=== PATIENT | female | born 2005 | race Caucasian/White ===

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

== ENCOUNTER 2024-08-09 17:18 | Emergency (ER) | payer OTHER, SELFPAY ==
[2024-08-09 17:37] VITALS: BP 133/71; PULSE 100; RESP 16; TEMP 37.3; O2SAT 100
--- NOTE | 2024-08-09 23:21 | ED_ITS ---
HPI - Ear Problem General Chief complaint: Ear Stated complaint: ear pain Time Seen by Provider: 08/09/24 17:38 Source: patient, RN notes reviewed and old records reviewed Mode of arrival: ambulatory Limitations: no limitations History of Present Illness HPI Narrative: 19-year-old female to Express Care with complaint of right ear pain for 2-3 days. Patient has attempted to treat at home with warm compresses and ibuprofen with little relief. Patient reports that pain is increasing. Patient denies fever, sore throat, recent illness, pertinent medical history. Patient able to tolerate fluids by mouth. Patient resting uncomfortably in exam room. Patient in no acute distress. Related Data Allergies Allergy/AdvReac Type Severity Reaction Status Date / Time codeine Allergy Unknown Unknown Unverified 08/09/24 17:37 pistachio nut Allergy Unknown Unknown Verified 08/09/24 17:37 walnut Allergy Unknown Unknown Verified 08/09/24 17:37 Cashew Allergy Unknown Unknown Uncoded 08/09/24 17:37 Review of Systems Review of Systems: All systems reviewed & are unremarkable except as noted in HPI and below Constitutional: Constitutional: Reports no additional constitutional complaints Eyes: Eyes: Reports no additional eye complaints ENT: Reports as per HPI and Reports otalgia ( Right) Cardiovascular: Cardiovascular: Reports no additional cardiovascular complaints, Denies chest pain and Denies dyspnea Respiratory: Respiratory: Reports no additional respiratory complaints, Denies cough and Denies dyspnea Musculoskeletal: Musculoskeletal: Reports no additional musculoskeletal complaints Neurologic: Reports system reviewed and no additional complaints, except as documented Psychiatric: Psychiatric: Reports no additional psychiatric complaints [facility] Past Medical History Medical History Allergic asthma PTSD (post-traumatic stress disorder) Epilepsy Seizure Surgical History Surgical History History of tonsillectomy and adenoidectomy Social History Social History Smoking status: Never smoker Alcohol intake: never Substance use type: does not use Living arrangements: with family Gender identity (if verbalized by the patient): Female Comments At the time of my signature, I reviewed and agree with the nursing past medical, surgical, social, and family history. There is no relevant family history pertinent to the patient complaint. Exam Const: General: cooperative, comfortable, no acute distress, alert, uncomfortable and well nourished Nutritional Appearance: well nourished Orientation/consciousness: patient oriented x3 Limitations: no limitations HENMT: Head: normal to inspection Ears: external ears normal, Abnormal EAC present EAC tenderness on the right and TM abnormal bulging on the right, erythematous on the right and with loss of landmarks on the right Face/No se/Sinus: Normal external nose present, Normal nares present, normal facial exam, No erythema and No edema Face and sinus: normal facial exam, no erythema and no edema Mouth: Yes Normal oral and palatal mucosa present Eyes: General: appearance normal, both eyes and all related structures Neck: Neck: normal visual inspection, full ROM and no meningeal signs Lymphatic: no lymphadenopathy noted and no lymphedema noted Chest: Chest palpation & inspection: normal inspection of the chest Resp: Effort & Inspection: normal respiratory effort and able to speak in complete sentences Auscultation: clear to auscultation bilaterally Cardio: Jugular venous distension: no JVD Rate: regular rate Rhythm: regular rhythm Back/Spine/Pelvis: Cervical Spine: cervical ROM normal Skin: General skin exam: normal color, no rashes or lesions noted and turgor normal Neuro: General: patient oriented x3, gait normal, moves all extremities and no meningeal signs Speech: normal speech Gait exam (Neuro): Normal gait present Extrem: General: normal to inspection, full ROM and capillary refill normal Psych: Appearance: grossly normal and well kempt Course Course Emergency Course: Some parts of this dictation were generated by voice recognition software and may contain typographical and/or grammatical inaccuracies. Level of Care: Express Care Visit Vital Signs Vital signs: Vital Signs Temperature 37.3 C 08/09/24 17:37 Pulse Rate 100 08/09/24 17:37 Respiratory Rate 16 08/09/24 17:37 Blood Pressure 133/71 08/09/24 17:37 Pulse Oximetry 100 08/09/24 17:37 Oxygen Delivery Room Air 08/09/24 17:37 Temperature 37.3 C 08/09/24 17:37 Pulse Rate 100 08/09/24 17:37 Respiratory Rate 16 08/09/24 17:37 Blood Pressure 133/71 08/09/24 17:37 Pulse Oximetry 100 08/09/24 17:37 Oxygen Delivery Room Air 08/09/24 17:37 reviewed Medical Decision Making MDM Narrative Medical decision making narrative: 19-year-old female to Express Care with complaint of right ear pain for 2-3 days. Patient has attempted to treat at home with warm compresses and ibuprofen with little relief. Patient reports that pain is increasing. Patient denies fever, sore throat, recent illness, pertinent medical history. Patient able to tolerate fluids by mouth. Patient resting uncomfortably in exam room. Patient in no acute distress. Patient is sitting uncomfortably in exam room nontoxic in appearance. on exam, right TM erythematous, dull, loss of landmarks, bulging. Right EAC tenderness. Findings consistent right otitis media. Patient appropriate for outpatient treatment and follow-up. Discharge instructions reviewed with patient, as well as provided in writing per nursing staff. The instructions also include specific and strict return/GO TO THE ER as well as f/u information. All questions have been answered, and the patient deny any further questions with discharge and discharge plan. Some parts of this dictation were generated by voice recognition software and may contain typographical and/or grammatical inaccuracies. Differential Diagnosis Differential Diagnosis: Otitis media, otitis externa, foreign body ear, tympanic membrane rupture, upper respiratory infection Vital Signs Vital Signs: Vital Signs Temperature 37.3 C 08/09/24 17:37 Pulse Rate 100 08/09/24 17:37 Respiratory Rate 16 08/09/24 17:37 Blood Pressure 133/71 08/09/24 17:37 Pulse Oximetry 100 08/09/24 17:37 Oxygen Delivery Room Air 08/09/24 17:37 Temperature 37.3 C 08/09/24 17:37 Pulse Rate 100 08/09/24 17:37 Respiratory Rate 16 08/09/24 17:37 Blood Pressure 133/71 08/09/24 17:37 Pulse Oximetry 100 08/09/24 17:37 Oxygen Delivery Room Air 08/09/24 17:37 Discharge Plan Discharge Clinical Impression: Otitis media, right Patient Disposition: Home, Self-Care Condition: Stable Instructions: Antibiotic Form Additional Instructions: please start taking the steroid tomorrow morning -Alternate Tylenol and Motrin per package directions for fever or pain. -Antihistamine medication such as Benadryl at night and Zyrtec/Claritin/Luli during the day can help improve symptoms. -Use Flonase twice a day for 5 days then daily to help reduce the inflammation and dry up your sinuses. -You can also use Sudafed or Mucinex. Be sure to drink plenty of water with these medications at least 8 ounces with every dose and it is important to drink 8 to 10 glasses of water per day. Water is a natural decongestant -Eat and drink things that are easy to swallow, like tea or soup, or popsicles. -Oral rinses such as: Salt water gargles and/or may use topical anesthetic (eg. Chloraseptic spray) or lozenges to relieve dryness or throat pain). -Frequent hand washing or hand [employer] is one of the best ways to prevent spread of infection. -Using a vaporizer or humidifier at night will also help thin secretions and help with coughing up phlegm. -Follow up with primary care provider in 2-3 days if condition is not improving; or seek ER visit if you have trouble breathing, cannot drink enough fluids, have muffled voice, difficulty opening your mouth, or severe swelling. Patient Language: Micronesian Prescriptions: New prednisone 20 mg tablet See Rx Instructions .ROUTE .COMPLEX Qty: 9 0RF Rx Instructions: Take 40mg x3 days, 20mg x3 days amoxicillin 875 mg tablet 875 mg PO Q12H Qty: 20 0RF Follow-up/Referrals: Jack,MD Bella [Primary Care Provider] -
== END 2024-08-09 18:29 | disposition home or self-care (01) ==
PROVIDERS: Emergency Provider Nurse Practitioner Family; PCP Family Medicine
DX: H66.91 Otitis media, unspecified, right ear (principal)
CPT/HCPCS: 99213; G0463

== ENCOUNTER 2024-12-26 15:00 | Emergency (ER) | payer OTHER, SELFPAY ==
--- NOTE | ~2024-12-26 | XR_ITS ---
EXAMINATION: XR chest 1V portable Exam Date/Time: 12/26/2024 15:20 CDT HISTORY: allergic reaction Comparison: 10/31/2008. RESULT: Lines, tubes, and devices: None. Lungs and pleura: Clear. Cardiomediastinal silhouette: Stable. Other: No acute osseous or upper abdominal finding. IMPRESSION: No acute cardiopulmonary process. Reviewed, dictated and finalized at location K.
[2024-12-26 14:59] VITALS: BP 133/81; PULSE 140; RESP 24
[2024-12-26 15:00] VITALS: O2SAT 98
[2024-12-26] MEDS: FAMOTIDINE 20 MG/2 ML VIAL IV PUSH (15:28)
[2024-12-26] MEDS: methylPREDNISolone SOD SUCC 125 MG VIAL IV PUSH (15:28)
[2024-12-26] MEDS: SODIUM CHLORIDE 0.9% IV 1,000 ML 999 ML IV CONT (15:34)
[2024-12-26 16:01] VITALS: BP 108/64; PULSE 104; RESP 24; TEMP 36.6; O2SAT 98
--- NOTE | 2024-12-26 16:58 | PC.NURSE ---
1630 Pt ambulated to BR with steady gait, denies shortness of breath. No resp distress present or hives
--- NOTE | 2024-12-26 17:11 | ED_ITS ---
HPI - General Adult General Chief complaint: Allergic Reaction Stated complaint: Allergic reaction Time Seen by Provider: 12/26/24 15:06 History of Present Illness HPI narrative: Patient is a 19-year-old female with history of a nut allergy that presents the ER with concerns for allergic reaction. 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 She went to the nurse who administered her epinephrine and EMS was contacted. Patient feels as though she saw some tightness or throat and difficulty speaking. She did receive 50 mg of Benadryl IV by EMS. No wheezing. No hypoxia. No hypertension. She is tachycardic. Related Data Allergies Allergy/AdvReac Type Severity Reaction Status Date / Time codeine Allergy Unknown Unknown Verified 12/26/24 15:27 pistachio nut Allergy Unknown Unknown Verified 12/26/24 15:27 walnut Allergy Unknown Unknown Verified 12/26/24 15:27 Cashew Allergy Unknown Unknown Uncoded 12/26/24 15:27 Review of Systems Review of Systems: All systems reviewed & are unremarkable except as noted in HPI and below Constitutional: Constitutional: Reports no additional constitutional complaints ENT: Reports system reviewed and no additional complaints, except as documented Cardiovascular: Cardiovascular: Reports no additional cardiovascular complaints Respiratory: Respiratory: Reports no additional respiratory complaints Allergic/Immunologic: Allergic/Immunologic: Reports no additional allergic/immunologic complaints PMFSH Past Medical History Medical History Allergic asthma PTSD (post-traumatic stress disorder) Epilepsy Seizure Surgical History Surgical History History of tonsillectomy and adenoidectomy Social History Social History Smoking status: Never smoker Alcohol intake: never Substance use type: does not use Living arrangements: with family Gender identity (if verbalized by the patient): Female Exam Narrative: GENERAL: Anxious-appearing, well-nourished, and in mild distress. HEAD: Normocephalic, atraumatic. EYES: PERRL and EOMI. ENT: Mucous membranes moist. Erythema of the posterior oropharynx with mild edema of the uvula. Normal tongue. NECK: Supple. CHEST: Clear to auscultation. No respiratory distress. HEART: Tachycardic regular. Normal peripheral pulses. ABDOMEN: Soft, nontender, nondistended. EXTREMITIES: Normal range of motion. No edema. SKIN: Warm, dry, no rash. NEURO: Alert and oriented x3. Course Course Emergency Course: Patient received IV Pepcid and Solu-Medrol. Heart rate has improved. Posterior for a neck is now normal and she is speaking normally as well. Appropriate for discharge home. She has already arranged for an EpiPen refill. Vital Signs Vital signs: Vital Signs Pulse Rate 140 H 12/26/24 14:59 Respiratory Rate 24 H 12/26/24 14:59 Blood Pressure 133/81 12/26/24 14:59 Oxygen Delivery Room Air 12/26/24 14:59 Temperature 97.9 F 12/26/24 16:01 Pulse Rate 104 H 12/26/24 16:01 Respiratory Rate 24 H 12/26/24 16:01 Blood Pressure 108/64 12/26/24 16:01 Pulse Oximetry 98 12/26/24 16:01 Oxygen Delivery Room Air 12/26/24 15:00 Medical Decision Making Vital Signs Vital Signs: Vital Signs Pulse Rate 140 H 12/26/24 14:59 Respiratory Rate 24 H 12/26/24 14:59 Blood Pressure 133/81 12/26/24 14:59 Oxygen Delivery Room Air 12/26/24 14:59 Temperature 97.9 F 12/26/24 16:01 Pulse Rate 104 H 12/26/24 16:01 Respiratory Rate 24 H 12/26/24 16:01 Blood Pressure 108/64 12/26/24 16:01 Pulse Oximetry 98 12/26/24 16:01 Oxygen Delivery Room Air 12/26/24 15:00 Imaging Data Radiologist's impression: ITS Impressions Chest X-Ray 12/26/24 15:32 IMPRESSION: No acute cardiopulmonary process. Discharge Plan Discharge Clinical Impression: Allergic reaction Patient Disposition: Home Condition: Stable Instructions: Food Allergy (ED) Additional Instructions: Return ER if you have worsening ability to breathe, you cannot swallow, you lose consciousness, have additional concerns. Patient Language: Yakut Prescriptions: New prednisone 20 mg tablet 20 mg PO DAILY Qty: 4 0RF famotidine [Pepcid] 20 mg tablet 20 mg PO BID Qty: 8 0RF No Action prednisone 20 mg tablet See Rx Instructions .ROUTE .COMPLEX Qty: 9 0RF Rx Instructions: Take 40mg x3 days, 20mg x3 days amoxicillin 875 mg tablet 875 mg PO Q12H Qty: 20 0RF Follow-up/Referrals: UNKNOWN,DOCTOR [Primary Care Provider] - 1 Week
[2024-12-26 18:01] VITALS: BP 109/66; PULSE 78; RESP 20; O2SAT 98
--- OUTSIDE RECORDS SUMMARY | 2024-12-26 18:12 | XMS_ITS | Encounter Summary ---
Author Organization [facility] Address [address] [place] [address] Phone Care Team Providers Care Customer Pricing Manager Name Role Phone Kiki Castle MD Primary Care Provider Reinaldo Morley MD Primary Care Provider [phone] Bella Santiago MD Primary Care Provide r Encounter Details Date Type Department Care Team (Late st Contact Info) Description 08/22/2021 Telephone 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 Gender Identity Female 01/18/2020 3:37 PM CDT Sexual Orientation Straight 01/18/2020 3: 37 PM CDT documented as of this encounter Plan of Treatment Not on file documented as of this encounter Visit Diagnoses Not on filedocumented in this encounter Orders Appointment Requests Count Last Ordered Date Fi rst Ordered Date [facility] TICKET SCHED - FOLLOW-UP APPT 1 08/21/2022 documented in this encounter Additional Health Concerns Infection Onset Date Last Indicated Resolved Time COVID: Suspected 03/28/2022 03/28/2022 03/28/2022 9:29 PM CDT COVID: Suspected 06/15/2023 06/15/2023 06/15/2023 11:41 AM CDT documented as of this encounter Care Teams Customer Pricing Manager Relationship Specialty Start Date End Date Kiki Castle MD PCP - General 06/26/17 10/20/22 Reinaldo Morley MD [address] [place] [address] PCP - General Family Medicine 10/21/22 04/05/23 Bella Santiago MD [address] [facility] [address] PCP - General Family Medicine 04/06/23 documented as of this encounter
--- OUTSIDE RECORDS SUMMARY | 2024-12-26 18:13 | XMS_ITS | Encounter Summary ---
Author [facility] Address [address] [place] [address] Phone Care Team Providers Care Malter Operator Name Role Phone Provider, None Primary Care Provider Unavailabl e Encounter Details Date Type Department Care Team (Late st Contact Info) Description 09/02/2023 Lab Requisition [facility] [address] [place] [address] Adalgisa Glover MD [address] [place] [address] Social History Tobacco Use Types Packs/Day Years Used Date Smoking Tobacco: Never Assessed Comments Unknown Sex and Gender Information Value Date Recorded Sex Assigned at Female 09/04/2023 1:06 PM BACTERIOLOGY RESEARCH ASSISTANT Legal Sex Female 9:57 AM BACTERIOLOGY RESEARCH ASSISTANT Gender Identity Not on file Sexual Orientation Not on file documented as of this encounter Plan of Treatment Not on file documented as of this encounter Procedures Procedure Name Priority Date/Time Associated Diagnosis Comments RUBEOLA, IGG, ALVERNO, RUBE2 Routine 09/02/2023 2:07 PM BACTERIOLOGY RESEARCH ASSISTANT documented in this encounter Results * RUBEOLA, IGG, ALVERNO, RUBE2 (09/02/2023 2:07 PM BACTERIOLOGY RESEARCH ASSISTANT) RUBEOLA AB, IGG 3.8 >=1.1 AI 09/03/2023 11:55 AM BACTERIOLOGY RESEARCH ASSISTANT [facility] RUBEOLA, IGG INTRP see below 09/03/2023 11:55 AM BACTERIOLOGY RESEARCH ASSISTANT [facility] Comment: Positive for Rubeola IgG by EIA, presumed immune to Measles infection. REFERENCE RANGE </= 0.8 Negative 0.9 - 1.0 Equivocal >/= 1.1 Positive Blood No Phlebotomy Charged / Unknown 09/02/2023 2:07 PM BACTERIOLOGY RESEARCH ASSISTANT 09/02/2023 5:28 PM BACTERIOLOGY RESEARCH ASSISTANT [facility] Christa Glover MD LAB SEND OUTS Final Result [facility] [address] [place] [address], [place] [phone] documented in this encounter Visit Diagnoses Not on filedocumented in this encounter Care Teams Malter Operator Relationship Specialty Start Date End Date Provider, None [place] PCP - General 09/04/23 documented as of this encounter
--- OUTSIDE RECORDS SUMMARY | 2024-12-26 18:13 | XMS_ITS | Clinical Summary ---
Author Organization [facility] Address [address] [place] [address] Care Team Providers Care Foreman/Project Manager Name Role Phone Bella Santiago MD Primary Care Provide r Allergies Active Allergy Reactions Criticality Noted Date Comments Codeine Rash Medium 04/26/2014 Pistachio Nut Shortness of breath High 03/25/2021 Tree Nuts Anaphylaxis High 09/24/2015 Also cashews and walnuts Medications folic acid (FOLVITE) 400 mcg tablet 02/08/20 21 Active ibuprofen (ADVIL,MOTRIN) 600 mg tablet Take 1 tablet (600 mg total) by mouth every 6 (six) hours as needed for pain for up to 30 doses 30 tablet 12/02/19 24 Active zonisamide (ZONEGRAN) 100 mg capsuleIndications :Partial Epilepsy Treatment Adjunct Take 100 mg at bedtime for 2 weeks, then take 200 mg at bedtime 60 capsule 11 09/12/19 25 Active Auvi-Q 0.3 mg/0.3 mL auto-injection syringeIndications :Anaphylaxis Inject 0.3 mL (0.3 mg total) into the muscle as instructed as needed for anaphylaxis 3 each 12/13/19 25 Active escitalopram (LEXAPRO) 20 mg tablet Take 1 tablet (20 mg total) by mouth daily 90 tablet 1 12/13/19 25 Active topiramate (TOPAMAX) 100 mg tabletIndications: Generalized idiopathic epilepsy and epileptic syndromes, not intractable, without status epilepticus (HCC) Take 2.5 tablets (250 mg total) by mouth 2 (two) times a day 450 tablet 3 08/21/20 22 025 Discontin ued(Caridad nt Reported) Auvi-Q 0.3 mg/0.3 mL auto-injection syringeIndications :Anaphylaxis Inject 0.3 mL (0.3 mg total) into the muscle as instructed as needed for anaphylaxis 3 each 4 10/21/19 23 025 Discontin ued(Reord er) escitalopram (LEXAPRO) 20 mg tablet Take 1 tablet (20 mg total) by mouth daily 30 tablet 1 05/11/20 23 025 Discontin ued(Reord er) ondansetron ODT (ZOFRAN-ODT) 4 mg disintegrating tablet Take 1 tablet (4 mg total) by mouth every 8 (eight) hours as needed for nausea or vomiting 20 tablet 12/02/19 24 025 Discontin ued(Donny py completed ) Active Problems Problem Noted Date Diagnosed Date 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 Gastroenteritis 12/15/2023 Assessment & Plan (12/15/2023 11:19 AM CDT): Vomiting and diarrhea has subsided Recommend bland diet RLQ abdominal pain 12/15/2023 Assessment & Plan (12/23/2023 11:06 AM CDT): improved US pelvis showed possible small cyst She will follow up with ob with this F/u at annual visit Assessment & Plan (12/15/2023 11:24 AM CDT): New concern Possibly from chlamydia Continue treatment Will get US pelvis stat and hold to evaluate for appendicitis Will get urinalysis for possible UTI but patient already on doxy F/u in 1 week, if no improvement and US unremarkable, will refer to GI Addendum: cbc and cmp ordered as well Upper respiratory infection 06/15/2023 Assessment & Plan (06/15/2023 12:52 PM CDT): New S/p amoxicillin and prednisone Will send augmentin twice a day given longevity of symptoms Will send albuterol for symptomatic relief for the cough Covid and flu negative Recommend fluids, rest, humidification if needed. She was instructed to call back if symptoms do not improved in a week, or if worsening ones arise. Education provided. F/u in 1 week if no improvement, can consider doxy or referral to ENT for the ear problems Anxiety 05/11/2023 Assessment & Plan (12/13/2024 11:12 AM CDT): Chronic problem. Not at goal at this time. CARLOS-7 score today: 15 Currently on Rx: none. Rx today: Lexapro, restart 20mg dose Mechanism of action side effects explained to patient. RTC in 3-6 months for close follow up Denies suicidal or homicidal ideation at this time. Emergent behavioral health information given including 911 for worsening symptoms Assessment & Plan (05/11/2023 12:01 PM CDT): Improved but not at goal Increase lexapro to 20mg daily F/u in 2 months Encounter for wellness examination 04/06/2023 Assessment & Plan (12/13/2024 11:12 AM CDT): Labs ordered by PCP; pending draw today Order urine G/C as screening for STI in sexually active female <26 Pap: UTD Discussed age-appropriate vaccines F/u in 1 year for annual Recommend yearly vision and dental exams as well Assessment & Plan (04/06/2023 1:53 PM CDT): Ordered CBC, cmp, lipid, hgb a1c, HIV, hep c, tsh F/u in 1 year for annual Moderate episode of recurrent major depressive d isorder 04/06/2023 Assessment & Plan (12/13/2024 11:12 AM CDT): Chronic problem. At goal at this time. PHQ-9 score today: 0 Denies suicidal or homicidal ideation at this time. 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 Patient was started on mesalamine enemas, however did not tolerate the enema due to severe nausea, stopped after 5 days. Overall doing okay Haven't had any rectal bleeding since last visit Had milk shake recently that's led to more loose stools and lower abdominal pain, but prior to that was not having any issues Trying to eat healthier in general labs from 11/18/2022 showed normal CMP, CBC, ESR, CRP, and fecal calprotectin Plan Schedule flex sig in 6 months to evaluate for proctosigmoiditis Okay to hold off on further therapy given symptoms are overall controlled and intolerance of mesalamine enemas Keep food diary and avoid trigger foods Dermatitis 10/21/2022 Class 1 obesity due to exces s calories without serious comorbidity with body mass index (BMI) of 33.0 to 33.9 in adult 10/21/2022 Assessment & Plan (12/13/2024 11:07 AM CDT): Chronic condition. Improving and now at goal BMI less than 30. Wt Readings from Last 3 Encounters: 12/12/24 73.5 kg (162 lb) 09/12/24 77.6 kg (171 lb) 08/05/24 80.3 kg (177 lb) Body mass index is 29.63 kg/m . BMI plan includes nutrition and exercise changes, as regular CV exercise may improve mental health as well as reduce overall morbidity and mortality. Brief nutritional counseling given today including the importance of protein intake to avoid muscle wasting with weight loss. 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 (Y/N): n Last Discussion of Intractability: onset (y/o): 10 etiology: genetic family History: 16 y/o 2nd cousin w/ intractable gtc; multiple additional relatives with +/- adolescent onset seizures, not intractable; mother w/ dystonia, photic sensitivity neuroimaging summary: date type comments EEG summary: date comments 08/27/15 Generalized polyspikes-waves, HV augmented, photoparoxysmal response seizure types: tonic-clonic myoclonic anticonvulsant comments: med dates comments epilepsy comorbidities: anxiety +FH migraine Assessment & Plan (12/13/2024 11:13 AM CDT): Chronic problem, stable at this time Follows with Neurology -needs new referral per pt statement that her specialist is moving locations Continue Rx per neurology: zonegran 100mg daily Asthma 04/26/2014 Benign neoplasm of skin of face 11/03/2013 Migraine Dissociative confusion Resolved Problems Problem Noted Date Diagnosed Date Resolved Date Bright red rectal bleeding 11/18/2022 0 01/09/2023 Assessment & Plan (11/18/2022 9:42 AM CDT): Chronic intermittent and worsening over the last 3 years. Occurs with about 60% of bowel movements. Blood is mixed in with the stool and with wiping not associated with constipation diarrhea or straining. Only occasional rectal pain. Has diffuse lower abdominal pain that resolves after BM. No weight loss. Great grandmother with colostomy and mother with psoriasis and RA, no family history of IBD or colon cancer. Rectal exam normal with no hemorrhoids or fissure. Normal CT abdomen pelvis from 2020. Normal CMP, TSH, and CBC aside from mildly elevated WBC 13.2 from 02/2022. Plan Check CBC, CMP, ESR, CRP, fecal calprotectin Schedule colonoscopy to rule out IBD or other colitis Hematochezia 11/18/2022 01/09/2023 Overview (11/18/2022): Added automatically from request for surgery [id number] Encounters Date Type Department Care Team Description 12/19/2024 Results Follow-Up [facility] Primary Care at [address] [address] Bella Santiago MD Leukocytosis, unspecified type (Primary Dx) 12/16/2024 2:50 PM CDT Lab [address] [address] Leukocytosis, unspecified type 12/14/2024 Results Follow-Up [facility] Primary Care at [address] [phone] Jackie Cisneros NP 12/12/2024 9:56 AM CDT - 12/12/2024 11:59 PM CDT Hospital [place] [address] STI (sexually transmitted infection) Discharge Disposition: Discharge to home or self care 12/12/2024 9:30 AM CDT Lab [address] [address] Fatigue, unspecified type 12/12/2024 8:30 AM CDT Office Visit [facility] Primary Care at [address] [address] Jackie Cisneros NP Encounter for wellness examination (Primary Dx); Class 1 obesity due to excess calories without serious comorbidity with body mass index (BMI) of 33.0 to 33.9 in adult; Moderate episode of recurrent major depressive disorder (HCC); Anxiety; Generalized convulsive seizures (HCC); Fatigue, unspecified type; Screen for STD (sexually transmitted disease); Dyspareunia in female 12/12/2024 Results Follow-Up [facility] Primary Care at [address] [place] [address] Jackie Cisneros NP 12/12/2024 Results Follow-Up [facility] Primary Care at [address] [place] [phone] Bella Santiago MD Leukocytosis, unspecified type (Primary Dx) 12/09/2024 2:40 PM CDT Lab [facility] [address] [place] [address] Encounter for wellness examination 10/03/2024 Telephone [facility] Primary Care at [address] [address] Bella Santiago MD Additional Services Or Orders from Last 3 Months Immunizations Immunization Administration Dates Next Due DTaP, Unspecified 03/08/2009, 5,2004,07/16,2004 HPV, Quadrivalent 10/03/2015,05/24/2015,03/12/20 15 Hep A, Unspecified 03/05/2007,02/03/2006 Hep B, Unspecified 03/10/2005,2004, 004 HiB 03/10/2005,2004,2004 Influenza, Quadrivalent, Becca l Culture-based MDCK, Preservative Free, Antibiotic Free, Intramuscular 05/28/2022,07/27/2019 Influenza, Quadrivalent, Spl it, Intramuscular 06/08/2017 Influenza, Trivalent, IM (MDV) 06/08/2021 Influenza, Unspecified 05/25/2024,2014,05/21/2014,05/23 MMR 03/08/2009,03/10/2005 Meningococcal B, OMV (Bexsero) 05/10/2020 Meningococcal MCV4P (Menactra) 05/10/2020,2014 Pneumococcal Conjugate PCV 13 03/10/2005 ,2004,2004,05/09 Polio, Unspecified 03/08/2009, 5,2004,05/09 Tdap 03/09/2014 Varicella 03/08/2009,06/10/2005 Surgical History Surgery Date Site/Laterality Comments TONSILLECTOMY T &A Medical History Medical History Date Comments Seizure (HCC) Migraine Neurological disorder 02/2022 GERD (gastroesophageal reflu x disease) 4 months olds Asthma 2011 Brain concussion spring 2017 Bright red rectal bleeding 11/18/2022 Hematochezia 11/18/2022 Added elianea inna from request for surgery [id number] Family History Medical History Relation Name Comments Learning disabilities Brother Faustino Allergy (severe) Father Donor Asthma Father Donor Rashes / Skin problems Father's Sister Unknown Epilepsy Half-Brother Arthritis Maternal Grandfather Natan Heart disease Maternal Grandfather Natan Hypertension Maternal Grandfather Natan Neurological disorder Maternal Grandfather Natan PTSD Maternal Grandfather Natan Tourette syndrome Maternal Grandfather Natan Allergy (severe) Maternal Grandmother Gricelda Arthritis Maternal Grandmother Gricelda Stroke Maternal Grandmother Gricelda Thyroid disease Maternal Grandmother Gricelda Allergy (severe) Mother Corin Anemia Mother Corin Arthritis Mother Corin Hearing loss Mother Corin Psoriasis Mother Corin Family history of psoriasis - (Added by TW Conv) Rashes / Skin problems Mother Corin Hypertension Paternal Grandfather Unknown Relation Name Status Comments Brother Faustino Father Donor Father's Sister Unknown Half-Brother Alive Maternal Grandfather Natan Alive Maternal Grandmother Gricelda Alive Mother Corin Alive Paternal Grandfather Unknown Social History Tobacco Use Types Packs/Day Years Used Date Smoking Tobacco: Never Smokeless Tobacco: Never Tobacco Cessation:Counseling Given: Not Answered Alcohol Use Standard Drinks/Week Comments Never 0 (1 standard drink = 0.6 oz pur e alcohol) AUDIT-C Answer Date Recorded Q1: How often do you have a drink containing alcohol? Never 12/12/2024 Q2: How many drinks containi ng alcohol do you have on a typical day when you are drinking? Patient does not drink Q3: How often do you have si x or more drinks on one occasion? Never 12/12/2024 PHQ-2 Answer Date Recorded PHQ-2 Total Score (If total score is 3 or more points, staff should administer the PHQ-9) 0 12/12/2024 Personal Safety Answer Date Recorded Have you ever been in or are you currently in a harmful physical or emotional relationship or is someone making you feel afraid or unsafe? 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 Gender Identity Female 01/18/2020 3:37 PM CDT Sexual Orientation Straight 01/18/2020 3: 37 PM CDT Occupation Industry Job Start Date Job End Date Not on file Not on file Not on file Not on file Obstetrics History Para Term AB IAB SAB Ectopic Multiple Livin g Live Births 0 0 0 0 0 0 0 0 0 0 0 Last Filed Vital Signs Vital Sign Reading Time Taken Comments Blood Pressure 104/80 12/12/2024 8:36 AM CDT Pulse 98 12/12/2024 8:36 AM CDT Temperature 36.8 C (98.2 F) 12/12/2024 8:36 AM CDT Respiratory Rate 20 09/12/2024 8:22 AM 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 Oxygen Saturation 99% 12/12/2024 8:36 AM CDT Inhaled Oxygen Concentration - - Weight 73.5 kg (162 lb) 12/12/2024 8:36 AM CDT Height 157.5 cm (5' 2 ) 12/12/2024 8:36 AM CDT Body Mass Index 29.63 12/12/2024 8:36 AM CDT Plan of Treatment Health Maintenance Due Date Last Done Comments Pneumococcal vaccine <65 (1 of 1 - PPSV23) 2010 03/10/2005, 2004, 2004, Additional history exists Meningococcal B Vaccine (2 o f 2 - Bexsero SCDM 2-dose series) 11/07/2020 05/10/2020 DTaP/Tdap/Td Vaccine (7 - Td or Tdap) 03/09/2024 03/09/2014, 03/08/2009, 06/10/2005, Additional history exists Chlamydia and Gonorrhea (GC/ CT) Screening 12/12/2025 12/12/2024, 12/01/2023 Depression Screening 12/12/2025 12/12/2024, 07/04/2024, 12/15/2023, Additional history exists Regular Well Visit/Exam 18-64 12/12/2025 12/12/2024, 04/06/2023 Hepatitis B Screening Completed 03/10/2005 , 2004, 2004 Varicella Vaccines Completed 03/08/2009, 06/10/2005 HPV Vaccines Completed 10/03/2015, 05/02, 03/12/2015 Meningococcal Vaccine Completed 05/10/2020, 015 Hepatitis C Screening Completed 04/08/2023 Covid-19 Vaccine Completed 05/25/2024, , 12/27/2020, Additional history exists Influenza Vaccine Completed 05/25/2024, , 06/08/2021, Additional history exists Procedures Procedure Name Priority Date/Time Associated Diagnosis Comments CLINICAL PATHOLOGY REPORT Routine 12/16/2024 3:03 PM CDT EGFR Routine 12/16/2024 3:03 PM CDT Leukocytosis, unspecified type DIFFERENTIAL AUTO Routine 12/16/2024 3:0 3 PM CDT CBC WITH AUTO DIFFERENTIAL Routine 12/16/2024 3:03 PM CDT SLIDE REVIEW - PATHOLOGIST Routine 12/16/2024 3:03 PM CDT Leukocytosis, unspecified type COMPREHENSIVE METABOLIC PANEL Routine 12/16/2024 3:03 PM CDT Leukocytosis, unspecified type ERYTHROCYTE SEDIMENTATION RATE Routine 12/16/2024 3:03 PM CDT Leukocytosis, unspecified type CRP (ACUTE PHASE) Routine 12/16/2024 3:0 3 PM CDT Leukocytosis, unspecified type PROTEIN ELECTROPHORESIS, WITH REFLEX, SERUM Routine 12/16/2024 3:03 PM CDT Leukocytosis, unspecified type HIV 1/2 ANTIBODY PLUS P24 ANTIGEN Routine 12/16/2024 3:03 PM CDT Leukocytosis, unspecified type DAVID-CASAREZ VIRUS VCA ANTIBODY PANEL Routine 12/16/2024 3:03 PM CDT Leukocytosis, unspecified type CMV, IGG AND IGM ANTIBODIES Routine 12/16/2024 3:03 PM CDT Leukocytosis, unspecified type CLINICAL PATHOLOGY REPORT Routine 12/16/2024 8:25 AM CDT N. GONORRHOEAE/C. TRACHOMATIS AMPLIFICATION Routine 12/12/2024 9:56 AM CDT STI (sexually transmitted infection) VITAMIN D 25 HYDROXY Routine 12/12/2024 9:34 AM CDT Fatigue, unspecified type VITAMIN B12 Routine 12/12/2024 9:34 AM CDT Fatigue, unspecified type EGFR Routine 12/09/2024 3:03 PM CDT Encounter for wellness examination DIFFERENTIAL AUTO Routine 12/09/2024 3:0 3 PM CDT Encounter for wellness examination CBC WITH AUTO DIFFERENTIAL Routine 12/09/2024 3:03 PM CDT Encounter for wellness examination COMPREHENSIVE METABOLIC PANEL Routine 12/09/2024 3:03 PM CDT Encounter for wellness examination LIPID PANEL Routine 12/09/2024 3:03 PM CDT Encounter for wellness examination THYROID FUNCTION CASCADE Routine 12/09/2024 3:03 PM CDT Encounter for wellness examination HEMOGLOBIN A1C Routine 12/09/2024 3:03 PM CDT Encounter for wellness examination HEPATITIS C ANTIBODY Routine 04/08/2023 10:27 AM CDT Encounter for wellness examination from Last 3 Months or Most Recently Relevant to Health Maintenance Results * Slide review - pathologist (12/16/2024 3:03 PM CDT) Slide review by See comment Comment: Slide reviewed by Dr. Rodríguez on 12/19/24. Please see pathology report in [facility] for results. Interpretive Data See Clinical Pathology Report under Media section in [facility]. Current Interpretive Data was last revised on 2018. Blood 12/16/2024 3:03 PM CDT 12/16/2024 3:38 PM CDT us Bella Santiago MD LAB BLOOD ORDERABLES Final Result [facility] Department [place] [address] * Clinical pathology report (12/16/2024 3:03 PM CDT) Miscellaneous 12/16/2024 3:0 3 PM CDT 12/20/2024 8:09 AM CDT Narrative 12/21/2024 10:52 AM CDT [facility] results best viewed via link to PDF [facility] Department of Pathology [address] [place] [id number] Final Report Note to Patients: This report may contain a detailed description of human tissue sent by a health care provider to the laboratory for pathologic evaluation. The content of this report is essential for diagnosis and may provide important critical findings. This information may be unfamiliar to patients to review without a medical professional present. It is advised that the patient review this report in the presence of a health care provider who can answer questions and explain the details. Patient Name: RENETTA GRIMES Address: [facility] [place] [address] Gender: F : 2005 (Age: 19) Service: Location: Hospital #: [id number] Patient Type: [facility] ANCILLARY Taken: 12/16/2024 Received: 12/20/2024 Accessioned: 12/20/2024 Physician(s): Bella Santiago M.D. [facility] Specimen(s) Received A: Blood (serum) Serum Protein ElectrophoresisReported:12/21/2024 Interpretation: Serum Protein Electrophoresis: Normal serum protein electrophoresis pattern. Comment: Serum Protein Electrophoresis: There are no significant abnormalities of the protein fractions. See Epic and/or separate report for protein fraction table. Johan Benitez MD PhDReport Electronically Reviewed and Signed Out By Johan Benitez MD PhD 12/21/2024 10:50:17 The performance characteristics of some immunohistochemical stains, fluorescence in-situ hybridization tests and immunophenotyping by flow cytometry cited in this report (if any) were determined by the Surgical Pathology Department at [facility] as part of an ongoing quality assurance supervisor program and in compliance with federally mandated regulations drawn from the Clinical Laboratory Improvement Act of 1988 (CLIA '88). Some of these tests rely on the use of analyte specific reagents and are subject to specific labeling requirements by the US Food and Drug Administration. Such diagnostic tests may only be performed in a facility that is certified by the Department of Health and Human Services as a high complexity laboratory under CLIA '88. The FDA has determined that such clearance or approval is not necessary. This test is used for clinical purposes. It should not be regarded as investigational or for research. Nevertheless, federal rules concerning the medical use of analyte specific reagents require that the following disclaimer be attached to the report: This test was developed and its performance characteristics determined by the Surgical Pathology Department [facility]. It has not been cleared or approved by the U. S. Food and Drug Administration. REPORT IMAGES AND SCANNED DOCUMENTS, IF INCLUDED, ONLY VIEWABLE IN PDF VERSION OF REPORTe o Bella Santiago MD LAB PATHOLOGY ORDERAB LES Final Result * eGFR (12/16/2024 3:03 PM CDT) eGFR >90 >=60 mL/min/1. 73 m2 Comment: Interpretive Data Reference Interval Normal >/= 90 mL/min/1.73m2 Mildly decreased* 60 - 89 mL/min/1.73m2 Mildly to moderately decreased 45 - 59 mL/min/1.73m2 Moderately to severely decreased 30 - 44 mL/min/1.73m2 Severely decreased 15 - 29 mL/min/1.73m2 Kidney Failure < 15 mL/min/1.73m2 *Relative to young adult level Estimated glomerular filtration rate is determined by the 2020 CKD-EPI equation recommended by the National Kidney Foundation (A Unifying Approach to GFR Estimation: Recommendations of the NKF-ASK Task Force on Reassessing the Inclusion of Race in Diagnosing Kidney Disease, BECKYSJamar 2020). The CKD-EPI equation should not be used for patients with unstable renal function and has not been validated in children and those over 70. Current interpretive data was last reviewed 2021. Blood 12/16/2024 3:03 PM CDT 12/16/2024 3:38 PM CDT us Bella Santiago MD LAB BLOOD ORDERABLES Final Result [facility] [address] [facility] Department [place] [address] * (ABNORMAL) Differential, auto (12/16/2024 3:03 PM CDT) Neutrophil abs 6.64(H) 1.50 - 6.50 K/cumm Imm gran abs 0.02 0.00 - 0.10 K/cumm [facility] Lymphocyte abs 3.14 0.80 - 3.30 K/cumm [facility] ([place] Monocyte abs 0.59 0.20 - 0.80 K/cumm [facility] Eosinophil abs 0.11 0.00 - 0.50 K/cumm [facility] Basophil abs 0.04 0.00 - 0.10 K/cumm [facility] Neutrophil pct 63.0 % [facility] Comment: Interpretive Data Percent cell count reference ranges are not reported, since discordance with absolute values may lead to misinterpretation of CBC data. Current Interpretive Data was last revised on 2017. Imm gran pct 0.2 % [facility] Comment: Interpretive Data Percent cell count reference ranges are not reported, since discordance with absolute values may lead to misinterpretation of CBC data. Current Interpretive Data was last revised on 2017. Lymphocyte pct 29.8 % [facility] Comment: Interpretive Data Percent cell count reference ranges are not reported, since discordance with absolute values may lead to misinterpretation of CBC data. Current Interpretive Data was last revised on 2017. Monocyte pct 5.6 % [facility] Comment: Interpretive Data Percent cell count reference ranges are not reported, since discordance with absolute values may lead to misinterpretation of CBC data. Current Interpretive Data was last revised on 2017. Eosinophil pct 1.0 % [facility] ([place]) Comment: Interpretive Data Percent cell count reference ranges are not reported, since discordance with absolute values may lead to misinterpretation of CBC data. Current Interpretive Data was last revised on 2017. Basophil pct 0.4 % [facility] ([place]) Comment: Interpretive Data Percent cell count reference ranges are not reported, since discordance with absolute values may lead to misinterpretation of CBC data. Current Interpretive Data was last revised on 2017. Blood 12/16/2024 3:03 PM CDT 12/16/2024 3:38 PM CDT Bella Santiago MD LAB BLOOD ORDERABLES Final Result GWENDOLYNRICH HOOKER ([place]) 1 [facility] Department [place] [address] * HIV 1/2 Antibody plus p24 Antigen Blood (12/16/2024 3:03 PM CDT) HIV 1/2 ab + p24 ag Nonreactive Nonreactive Comment: Nonreactive for HIV-1 antigen and HIV-1/HIV-2 antibodies. No laboratory evidence of HIV infection. If acute HIV infection is suspected, consider testing for HIV-1 RNA. Testing performed by: [facility], [address] [place] [address], [place] [address] Blood 12/16/2024 3:03 PM CDT 12/16/2024 5:27 PM CDT Bella Santiago MD LAB MICROBIOLOGY - NERAL ORDERABLES Final Result EVGENY HOOKER ([place]) 1 [facility] Department [place] [address] * CMV, IgG and IgM antibodies Blood (12/16/2024 3:03 PM CDT) [facility] CMV IgG Negative Negative Comment: Interpretive Data Negative - Individuals with negative CMV IgG results are presumed to not have had prior exposure or infection with CMV and are, therefore, considered susceptible to primary infection. Equivocal - Equivocal results may occur during acute infection or may be due to nonspecific binding reactions. Submit an additional sample for testing if clinically indicated. Positive - Indicates presence of detectable CMV IgG antibody. Results indicate past or recent CMV infection. Testing performed by: [facility], [address] [place]., [address] CMV IgM Negative Negative [facility] ([place]) Comment: Interpretive Data Negative - Negative CMV IgM results suggests that the patient is not experiencing acute or active infection. However, a negative result does not rule-out primary CMV infection. Equivocal - Equivocal results may occur during acute infection or may be due to nonspecific binding reactions. Submit an additional sample for testing if clinically indicated. Positive - Positive CMV IgM results may indicate a recent infection (primary, reactivation, or reinfection). Testing performed by: [facility], [address] [place]., [address] Blood 12/16/2024 3:03 PM CDT 12/16/2024 5:47 PM CDT Bella Santiago MD LAB MICROBIOLOGY - [facility] ORDERABLES Final Result EVGENY HOOKER ([place]) 1 [facility] Department [place] [address] * (ABNORMAL) CBC with auto differential (12/16/2024 3:03 PM CDT) [facility] WBC 10.54(H) 3.80 - 9.90 K/cumm Hgb 13.3 11.9 - 15.5 g/dL EVGENY HOOKER ([place]) Hct 40.3 35.6 - 45.5 % [facility] ([place]) Plt 384 150 - 400 K/cumm [facility] ([place]) MPV 9.2 9.1 - 12.3 fL [facility] ([place]) RBC 4.45 3.90 - 5.20 M/cumm [facility] ([place]) MCV 90.6 81.3 - 96.4 fL [facility] ([place]) MCH 29.9 27.1 - 33.3 pg [facility] ([place]) MCHC 33.0 32.3 - 35.7 g/dL [facility] ([place]) RDW CV 11.9 11.1 - 14.9 % [facility] ([place]) RDW SD 39.3 35.7 - 48.1 fL [facility] NRBC abs 0.00 0.00 - 0.01 K/cumm [facility] Blood 12/16/2024 3:03 PM CDT 12/16/2024 3:38 PM CDT Bella Santiago MD LAB BLOOD ORDERABLES Final Result [facility] ([place]) 1 [facility] Department [place] [address] * (ABNORMAL) David-Casarez virus (EBV) antibody panel Blood (12/16/2024 3:03 PM CDT) EBV nuclear Ab Positive(A) Negative Comment: Indicates the presence of detectable IgG antibody to EBV Nuclear Antigen. Testing performed by: [facility], [address] [place] [address], [place]., [address] EBV VCA IgG Positive(A) Negative [facility] ([place]) Comment: Indicates the presence of antibody; 90% of the adult population will have been infected with EBV sometime in the past. Testing performed by: [facility], [address] [place] [address], [place] [address] EBV VCA IgM Positive(A) Negative [facility] ([place] Comment: A positive test result indicates a current or reactivated infection with EBV. Testing performed by: [facility], 1 [facility], [place]., [address] EBV interp Past infection EVGENY HOOKER ([place]) Comment:Testing performed by : [facility], 1 [facility], [place]., [address] Blood 12/16/2024 3:03 PM CDT 12/16/2024 5:47 PM CDT Bella Santiago MD LAB MICROBIOLOGY - GE NERAL ORDERABLES Final Result EVGENY NHUNG ([place]) 1 [facility] [place] [address] * Erythrocyte sedimentation rate (12/16/2024 3:03 PM CDT) Pathologist [facility] Erythrocyte sedimentation rate 8 1 - 20 mm/hr Blood 12/16/2024 3:03 PM CDT 12/16/2024 3:38 PM CDT Bella Santiago MD LAB BLOOD ORDERABLES Final Result Performing Organization Address City/[facility]/ZIP Co de Phone Number EVGENY HOOKER ([place]) 1 [facility] Department [place] [employer] [address] * CRP (acute phase) (12/16/2024 3:03 PM CDT) Pathologist [facility] CRP <3.0 <=10.0 mg/L Blood 12/16/2024 3:03 PM CDT 12/16/2024 3:38 PM CDT Bella Santiago MD LAB BLOOD ORDERABLES Final Result EVGENY NHUNG ([place]) 1 [facility] Department [place] [address] * Protein electrophoresis with reflex, serum with interpretation (12/16/2024 3:03 PM CDT) Protein, sr 7.1 6.2 - 8.2 g/dL Comment:Testing performed by : [facility], [address] [place] [address]., [address] Albumin 4.6 3.2 - 5.0 g/dL [facility] ([place]) Comment:Testing performed by : [facility], [address] [place] [address]., [address] Alpha-1 globulin 0.3 0.2 - 0.4 g/dL [facility] ([place]) Comment:Testing performed by : [facility], [address] [place] [address], [address] Alpha-2 globulin 0.7 0.5 - 1.0 g/dL [facility] ([place]) Comment:Testing performed by : [address], [address] Beta-1 globulin 0.5 0.3 - 0.6 g/dL [facility] ([place]) Comment:Testing performed by : [address], [address] Beta-2 globulin 0.3 0.2 - 0.6 g/dL [facility] ([place]) Comment:Testing performed by : [facility], [address] [place] [address], [address] Gamma globulin 0.8 0.5 - 1.7 g/dL [facility] ([place]) Comment:Testing performed by : [address], [address] SPEP interp See Cl Path Rpt [facility] ([place]) Comment:Testing performed by : [address], [address] Blood 12/16/2024 3:03 PM CDT 12/16/2024 5:27 PM CDT Bella Santiago MD LAB BLOOD ORDERABLES Final Result [facility] ([place]) 1 [facility] Department [place] [address] * (ABNORMAL) Comprehensive metabolic panel (12/16/2024 3:03 PM CDT) Sodium 136 135 - 145 mmol/L Potassium, pl 3.8 3.3 - 4.9 mmol/L [facility] ([place]) Chloride 103 97 - 110 mmol/L [facility] ([place]) CO2 22 22 - 32 mmol/L [facility] ([place]) Anion gap 11 2 - 15 mmol/L [facility] ([place]) BUN 12 6 - 25 mg/dL [facility] ([place]) Creatinine 0.85 0.60 - 1.10 mg/dL [facility] ([place]) Glucose 90 70 - 199 mg/dL [facility] ([place]) Comment: Interpretive Data Fasting glucose >/= 126 mg/dl is diagnostic for diabetes. Fasting is defined as no caloric intake for at least 8 hours. Fasting glucose between 100 mg/dl to 125 mg/dl is diagnostic of prediabetes. In a patient with classic symptoms of hyperglycemia or hyperglycemic crisis, a random glucose >/= 200 mg/dl is diagnostic for diabetes. In the absence of unequivocal hyperglycemia, results should be confirmed by repeat testing. The classification and Diagnosis of Diabetes Diabetes Care 2021; 46: S19-S40. Current interpretive data was last revised 2022. Calcium 9.4 8.5 - 10.3 mg/dL [facility] ([place]) Bilirubin, total <0.2 0.1 - 1.2 mg/dL [facility] ([place]) Protein, pl 7.5 6.5 - 8.5 g/dL [facility] ([place]) Albumin 4.7 3.5 - 5.0 g/dL [facility] ([place]) Alk phos 71 40 - 130 Units/L [facility] ([place]) ALT 9 7 - 45 Units/L [facility] ([place]) AST 9(L) 10 - 45 Units/L [facility] ([place]) Blood 12/16/2024 3:03 PM CDT 12/16/2024 3:38 PM CDT us Bella Santiago MD LAB BLOOD ORDERABLES Final Result [facility] ([place]) 1 [facility] Department [place] [address] * Clinical pathology report (12/16/2024 8:25 AM CDT) Miscellaneous 12/16/2024 8:2 5 AM CDT 12/19/2024 8:25 AM CDT Narrative 12/19/2024 3:59 PM CDT EPIC results best viewed via link to PDF [facility] Department of Pathology [address] [place] [id number] Final Report Note to Patients: This report may contain a detailed description of human tissue sent by a health care provider to the laboratory for pathologic evaluation. The content of this report is essential for diagnosis and may provide important critical findings. This information may be unfamiliar to patients to review without a medical professional present. It is advised that the patient review this report in the presence of a health care provider who can answer questions and explain the details. Patient Name: RENETTA GRIMES Address: [address] [place] [address] [place] [address] Gender: F : 2005 (Age: 19) Service: Location: Hospital #: [id number] Patient Type: [facility] ANCILLARY Taken: 12/16/2024 Received: 12/19/2024 Accessioned: 12/19/2024 Physician(s): Bella Santiago M.D. Specimen(s) Received A: Blood Peripheral Blood Smear ReviewReported:12/19/2024 A peripheral blood smear is reviewed in conjunction with a CBC dated 12/16/24: WBC 10.54, RBC 4.45, Hgb 13.3, HCT 40.3, MCV 90.6, MCHC 33.0, PLT 384, RDW 11.9%. A peripheral blood manual differential on 200 cells shows: neutrophils 65%, lymphocytes 29%, monocytes 5%, eosinophils 1%. Red blood cells are normal in number and normocytic. There is minimal anisopoikilocytosis. Nucleated red blood cells are not seen (0/100 WBCs). Platelets are normal in number with normal size and granularity. White blood cells are minimally increased in number with an appropriate mixture of neutrophils, lymphocytes, and monocytes. Neutrophils show appropriate nuclear segmentation and granularity. Lymphocytes and monocytes show unremarkable morphology. Interpretation: Peripheral blood, manual smear review: - Minimal leukocytosis. - See comment. COMMENT: The minimal leukocytosis is confirmed. There are no morphologic findings to strongly suggest a specific etiology. Recommend correlation with clinical findings and follow-up as clinically indicated. Henry Rodríguez MDReport Electronically Reviewed and Signed Out By Henry Rodríguez MD 12/19/2024 15:58:09 The performance characteristics of some immunohistochemical stains, fluorescence in-situ hybridization tests and immunophenotyping by flow cytometry cited in this report (if any) were determined by the Surgical Pathology Department at [facility] as part of an ongoing quality assurance supervisor program and in compliance with federally mandated regulations drawn from the Clinical Laboratory Improvement Act of 1988 (CLIA '88). Some of these tests rely on the use of analyte specific reagents and are subject to specific labeling requirements by the US Food and Drug Administration. Such diagnostic tests may only be performed in a facility that is certified by the Department of Health and Human Services as a high complexity laboratory under CLIA '88. The FDA has determined that such clearance or approval is not necessary. This test is used for clinical purposes. It should not be regarded as investigational or for research. Nevertheless, federal rules concerning the medical use of analyte specific reagents require that the following disclaimer be attached to the report: This test was developed and its performance characteristics determined by the Surgical Pathology Department [facility]. It has not been cleared or approved by the U. S. Food and Drug Administration. REPORT IMAGES AND SCANNED DOCUMENTS, IF INCLUDED, ONLY VIEWABLE IN PDF VERSION OF REPORTe o Bella Santiago MD LAB PATHOLOGY ORDERAB LES Final Result * N. gonorrhoeae/C. trachomatis Amplification Urine (12/12/2024 9:56 AM CDT) C. trachomatis Not Detected [facility] Comment:Testing performed by : [facility], [address] [facility] [place]., [address] N. gonorrhoeae Not Detected EVGENY CARLOS Comment: Interpretive Data This assay detects Chlamydia trachomatis and Neisseria gonorrhoeae by nucleic acid amplification testing (NAAT). This assay has been cleared by the [place] Food and Drug administration. The performance characteristics of this test have been verified by the [facility] Molecular Infectious Disease laboratory. The performance characteristics of this test have not been evaluated in individuals less than 14 years of age. Current Interpretive Data was last revised on 2023. Testing performed by: [facility], [address] [place]., [address] Urine (None) 12/12/2024 9:56 AM CDT 12/13/2024 10:09 AM CDT Jackie Cisneros [employer]PRESENT[employer] LAB MICROBIOLOGY - GENER AL ORDERABLES Final Result Performing Organization Address City/[facility]/ZIP Co de Phone Number EVGENY CARLOS [address] [address] Department [place] [address] [place] * (ABNORMAL) Vitamin D 25 hydroxy (12/12/2024 9:34 AM CDT) Vitamin D 25-OH 24(L) 30 - 80 ng/mL Blood 12/12/2024 9:34 AM CDT 12/12/2024 9:39 AM CDT Jackie Cisneros [employer]ER[employer]PRESENTATIVE LAB BLOOD ORDERABLES Fin al Result Performing Organization Address City/[facility] Co de Phone Number EVGENY HOOKER ([place]) 1 [facility] [employer] [place] [employer] [address] * Vitamin B12 (12/12/2024 9:34 AM CDT) Vitamin B12 270 230 - 1,250 pg/mL Blood 12/12/2024 9:34 AM CDT 12/12/2024 9:39 AM CDT Jackie Cisneros [employer]ER[employer] REPRESENTATIVE LAB BLOOD ORDERABLES Fin al Result Performing Organization Address City/[facility]/ZIP Co de Phone Number EVGENY [facility] ([place]) 1 [facility] [employer] [address] * eGFR (12/09/2024 3:03 PM CDT) eGFR >90 >=60 mL/min/1. 73 m2 Comment: Interpretive Data Reference Interval Normal >/= 90 mL/min/1.73m2 Mildly decreased* 60 - 89 mL/min/1.73m2 Mildly to moderately decreased 45 - 59 mL/min/1.73m2 Moderately to severely decreased 30 - 44 mL/min/1.73m2 Severely decreased 15 - 29 mL/min/1.73m2 Kidney Failure < 15 mL/min/1.73m2 *Relative to young adult level Estimated glomerular filtration rate is determined by the 2020 CKD-EPI equation recommended by the National Kidney Foundation (A Unifying Approach to GFR Estimation: Recommendations of the NKF-ASK Task Force on Reassessing the Inclusion of Race in Diagnosing Kidney Disease, JASN 2020). The CKD-EPI equation should not be used for patients with unstable renal function and has not been validated in children and those over 70. Current interpretive data was last reviewed 2021. Blood 12/09/2024 3:03 PM CDT 12/09/2024 4:14 PM CDT us Bella Santiago MD LAB BLOOD ORDERABLES Final Result EVGENY [facility] ([place]) 1 [facility] Department [place] [address] * (ABNORMAL) Differential, auto (12/09/2024 3:03 PM CDT) Pathologist [facility] Neutrophil abs 6.87(H) 1.50 - 6.50 K/cumm Imm gran abs 0.02 0.00 - 0.10 K/cumm [facility] ([place]) Lymphocyte abs 3.36(H) 0.80 - 3.30 K/cumm [facility] ([place]) Monocyte abs 0.56 0.20 - 0.80 K/cumm [facility] ([place]) Eosinophil abs 0.08 0.00 - 0.50 K/cumm [facility] ([place]) Basophil abs 0.04 0.00 - 0.10 K/cumm [facility] ([place]) Neutrophil pct 62.9 % [facility] ([place]) Comment: Interpretive Data Percent cell count reference ranges are not reported, since discordance with absolute values may lead to misinterpretation of CBC data. Current Interpretive Data was last revised on 2017. Imm gran pct 0.2 % [facility] ([place]) Comment: Interpretive Data Percent cell count reference ranges are not reported, since discordance with absolute values may lead to misinterpretation of CBC data. Current Interpretive Data was last revised on 2017. Lymphocyte pct 30.7 % [facility] ([place]) Comment: Interpretive Data Percent cell count reference ranges are not reported, since discordance with absolute values may lead to misinterpretation of CBC data. Current Interpretive Data was last revised on 2017. Monocyte pct 5.1 % [facility] ([place]) Comment: Interpretive Data Percent cell count reference ranges are not reported, since discordance with absolute values may lead to misinterpretation of CBC data. Current Interpretive Data was last revised on 2017. Eosinophil pct 0.7 % [facility] ([place]) Comment: Interpretive Data Percent cell count reference ranges are not reported, since discordance with absolute values may lead to misinterpretation of CBC data. Current Interpretive Data was last revised on 2017. Basophil pct 0.4 % [facility] ([place]) Comment: Interpretive Data Percent cell count reference ranges are not reported, since discordance with absolute values may lead to misinterpretation of CBC data. Current Interpretive Data was last revised on 2017. Blood 12/09/2024 3:03 PM CDT 12/09/2024 4:14 PM CDT us Bella Santiago MD LAB BLOOD ORDERABLES Final Result EVGENY HOOKER ([place]) 1 [facility] Department [place] [address] * Thyroid Function [place] (12/09/2024 3:03 PM CDT) TSH 0.73 0.30 - 4.20 mcIUnit/mL Blood 12/09/2024 3:03 PM CDT 12/09/2024 4:14 PM CDT Narrative [facility] ([place]) - 12/09/2024 5:12 PM CDT Fasting Bella Santiago MD LAB BLOOD ORDERABLES Final Result [facility] ([place]) 1 [facility] Department [place] [address] * (ABNORMAL) CBC with auto differential (12/09/2024 3:03 PM CDT) WBC 10.93(H) 3.80 - 9.90 K/cumm Hgb 13.8 11.9 - 15.5 g/dL [facility] ([place]) Hct 41.6 35.6 - 45.5 % [facility] ([place]) Plt 397 150 - 400 K/cumm [facility] ([place]) MPV 9.3 9.1 - 12.3 fL [facility] ([place]) RBC 4.56 3.90 - 5.20 M/cumm [facility] ([place]) MCV 91.2 81.3 - 96.4 fL [facility] ([place]) MCH 30.3 27.1 - 33.3 pg [facility] ([place]) MCHC 33.2 32.3 - 35.7 g/dL [facility] ([place]) RDW CV 11.9 11.1 - 14.9 % [facility] ([place]) RDW SD 39.4 35.7 - 48.1 fL [facility] ([place]) NRBC abs 0.00 0.00 - 0.01 K/cumm [facility] ([place]) Blood 12/09/2024 3:03 PM CDT 12/09/2024 4:14 PM CDT Narrative [facility] ([place]) - 12/09/2024 4:18 PM CDT Fasting Bella Santiago MD LAB BLOOD ORDERABLES Final Result EVGENY HOOKER ([place]) 1 [facility] Department [place] [address] * Hemoglobin A1c (12/09/2024 3:03 PM CDT) Hgb A1C 4.6 4.0 - 5.6 % Estimated Average Glucose 85 mg/dL EVGENY HOOKER ([place]) Comment: The ADA recommends reporting an estimated Average Glucose (eAG) with all Hemoglobin A1c results using the equation derived from a study of 507 normal and diabetic adults. Minority populations were underrepresented and children were not included. (Diabetes Care 31:0232-1244, 2008). The eAG is not equivalent to a fasting glucose. Blood 12/09/2024 3:03 PM CDT 12/09/2024 4:14 PM CDT Narrative EVGENY HOOKER ([place]) - 12/09/2024 4:59 PM CDT Fasting Bella Santiago MD LAB BLOOD ORDERABLES Final Result EVGENY HOOKER ([place]) 1 [facility] of [employer] [address] * Lipid panel (12/09/2024 3:03 PM CDT) [facility] Cholesterol 186 30 - 199 mg/dL Comment: Interpretive Data Ages < or = 19 years Acceptable: <170 mg/dL Borderline high: 170-199 mg/dL High: >or= 200 mg/dL Ages > or = 20 years Desirable: <200 mg/dL Borderline high: 200-239 mg/dL High: >or= 240 mg/dL Literature References: 1. Expert Panel on Integrated Guidelines for Cardiovascular Health and Risk Reduction in Children and Adolescents. Pediatrics 2011;128:S213 2. NCEP Expert Panel. Circulation 2004;110:227 Current Interpretive Data was last revised on 2018. Triglycerides 133 <=149 mg/dL EVGENY NHUNG ([place]) Comment: Interpretive Data Ages < or = 9 years Acceptable: <75 mg/dL Borderline high: 75-99 mg/dL High: >or= 100 mg/dL Ages 10 to 20 years Acceptable: <90 mg/dL Borderline high: 90-129 mg/dL High: >or= 130 mg/dL Ages > or = 20 years Desirable: <150 mg/dL Borderline high: 150-199 mg/dL High: 200-499 mg/dL Very high: >or= 499 mg/dL Literature References: 1. Expert Panel on Integrated Guidelines for Cardiovascular Health and Risk Reduction in Children and Adolescents. Pediatrics 2011;128:S213 2. NCEP Expert Panel. Circulation 2004;110:227 Current Interpretive Data was last revised on 2018. HDL 46 >=40 mg/dL EVGENY Meredith ([place]) Comment: Interpretive Data Ages < or = 19 years Acceptable: >45 mg/dL Borderline low: 40-45 mg/dL Low: <40 mg/dL Ages > or = 20 years Desirable: >or= 60 mg/dL Low: <40 mg/dL Literature References: 1. Expert Panel on Integrated Guidelines for Cardiovascular Health and Risk Reduction in Children and Adolescents. Pediatrics 2011;128:S213 2. NCEP Expert Panel. Circulation 2004;110:227 Current Interpretive Data was last revised on 2018. LDL, calculated 116 <=129 mg/dL EVGENY HOOKER ([place]) Comment: Interpretive Data Ages < or = 19 years Acceptable: <110 mg/dL Borderline high: 110-129 mg/dL High: >or= 130 mg/dL Ages > or = 20 years Optimal: <100 mg/dL Near optimal: 100-129 mg/dL Borderline high: 130-159 mg/dL High: >160 mg/dL Calculated using the Mark LDL-C estimating equation. This equation was implemented on 2024. Prior to this date LDL-C was estimated using the Friedewald equation. Literature References: 1. Expert Panel on Integrated Guidelines for Cardiovascular Health and Risk Reduction in Children and Adolescents. Pediatrics 2011;128:S213 2. NCEP Expert Panel. Circulation 2004;110:227 3. Mark Lowry al. GAURI Cardiol. 2020 December 29;5(5):540-548. doi: 10.1001/jamacardio.2020.0013 Current Interpretive Data was last revised on 2024. Non-HDL Cholesterol 140 mg/dL EVGENY HOOKER ([place]) Comment: Interpretive Data Ages < or = 19 years Acceptable: <120 mg/dL Borderline high: 120-144 mg/dL High: >145 mg/dL Ages > or = 20 years When triglycerides are >200 mg/dL, Non-HDL cholesterol is a secondary target of therapy with treatment goals that are 30 mg/dL greater than the LDL cholesterol target. Literature References: 1. Expert Panel on Integrated Guidelines for Cardiovascular Health and Risk Reduction in Children and Adolescents. Pediatrics 2011;128:S213 2. NCEP Expert Panel. Circulation 2004;110:227 Current Interpretive Data was last revised on 2018. Chol/HDL ratio 4 [facility] ([place]) Blood 12/09/2024 3:03 PM CDT 12/09/2024 4:14 PM CDT Narrative [facility] ([place] - 12/09/2024 5:06 PM CDT Fasting Bella Santiago MD LAB BLOOD ORDERABLES Final Result [facility] ([place]) 1 [facility] Department [place] [address] * (ABNORMAL) Comprehensive metabolic panel (12/09/2024 3:03 PM CDT) Sodium 139 135 - 145 mmol/L Potassium, pl 3.7 3.3 - 4.9 mmol/L [facility] ([place]) Chloride 106 97 - 110 mmol/L [facility] ([place] CO2 21(L) 22 - 32 mmol/L [facility] ([place]) Anion gap 12 2 - 15 mmol/L [facility] ([place]) BUN 8 6 - 25 mg/dL [facility] ([place]) Creatinine 0.66 0.60 - 1.10 mg/dL [facility] ([place]) Glucose 75 70 - 199 mg/dL [facility] ([place]) Comment: Interpretive Data Fasting glucose >/= 126 mg/dl is diagnostic for diabetes. Fasting is defined as no caloric intake for at least 8 hours. Fasting glucose between 100 mg/dl to 125 mg/dl is diagnostic of prediabetes. In a patient with classic symptoms of hyperglycemia or hyperglycemic crisis, a random glucose >/= 200 mg/dl is diagnostic for diabetes. In the absence of unequivocal hyperglycemia, results should be confirmed by repeat testing. The classification and Diagnosis of Diabetes Diabetes Care 2021; 46: S19-S40. Current interpretive data was last revised 2022. Calcium 9.4 8.5 - 10.3 mg/dL [facility] ([place] Bilirubin, total 0.3 0.1 - 1.2 mg/dL [facility] Protein, pl 7.3 6.5 - 8.5 g/dL [facility] ([place]) Albumin 4.5 3.5 - 5.0 g/dL [facility] ([place]) Alk phos 75 40 - 130 Units/L [facility] ([place]) ALT 9 7 - 45 Units/L [facility] ([place] AST 15 10 - 45 Units/L [facility] ([place]) Blood 12/09/2024 3:03 PM CDT 12/09/2024 4:14 PM CDT Narrative [facility] ([place]) - 12/09/2024 5:06 PM CDT Fasting Bella Santiago MD LAB BLOOD ORDERABLES Final Result [facility] ([place]) [facility] Department [place] [address] * Hepatitis C antibody (04/08/2023 10:27 AM CDT) Hep C Ab Nonreactive Nonreactive [facility] ([place]) Comment: Interpretive Data Nonreactive: Antibodies to HCV not detected. Does NOT exclude the possibility of recent exposure to HCV. Equivocal: Equivocal for HCV antibodies. Supplemental molecular testing will be automatically performed to determine infection status in accordance with current CDC screening recommendations. Reactive: Positive for HCV antibodies. This may represent current or past HCV infection. Supplemental molecular testing will be automatically performed to determine current infection status in accordance with current CDC screening recommendations. Interpretive data was last revised on 2019. Testing performed by: [facility], [address] [place] [address], [place]., [address] Blood 04/08/2023 10:2 7 AM CDT 04/08/2023 5:08 PM CDT Bella Santiago MD LAB MICROBIOLOGY - NERAL ORDERABLES Final Result [facility] ([place]) 1 [facility] Department [place] [address] from Last 3 Months or Most Recently Relevant to Health Maintenance [facility] [id number] [facility] [id number] [facility] [id number] [place] [id number] [employer] [facility] Advance Directives For more information, please contact: [phone] * Full Code (Latest Code Status on File) Date Activated Date Inactivated Comments 12/11/2022 7:11 AM 12/11/2022 2:24 PM Care Teams Foreman/Project Manager Relationship Specialty Start Date End Date Bella Santiago MD [address] [place] [address] [place] [address] PCP - General Family Medicine 04/06/23
--- OUTSIDE RECORDS SUMMARY | 2024-12-26 18:13 | XMS_ITS | Clinical Summary ---
Author Organization [facility] Address [address] [place] [address] Care Team Providers Care Electro Mechanical Technician Name Role Phone Kiki Castle MD Primary Care Provider Source Comments [facility],non-owned Affiliates and Associated Physician Practices is amultiple site organization consisting of ambulatory clinics and hospital sitesin [place], [place], [place] and [place]. This disclosure is being madepursuant to the Care Everywhere program and may not contain all information available regarding this patient. Last updated 18.[facility] [employer] Allergies Active Allergy Reactions Criticality Noted Date Comments Tree Nuts Anaphylaxis High 09/24/2015 Also cashews Codeine Rash Medium 04/26/2014 Medications * Be aware that medications may not be up to date on this document. Alwaysverify current medications with the patient. EPINEPHrine (EPIPEN) 0.3 MG/0.3ML auto-injector pen Inject 0.3 mg into muscle once Active naproxen (NAPROSYN) 375 MG tablet TAKE 1 TABLET BY MOUTH NEEDED FOR HEADACHE 30 tablet 2 8 Active topiramate (TOPAMAX) 100 MG tablet Take 1 tablet by mouth 2 times daily 60 tablet 5 9 Active Additional Information Patient taking differently:100 mg OralDAILY, Reported on 09/20/2019 diazePAM (DIASTAT) 20 MG gel Insert 12.5 mg into the rectum once as needed For seizure for 5 min., may repeat if seizure continues for 5 min. 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): [...] dates comments epilepsy comorbidities: anxiety +FH migraine Asthma 04/26/2014 Immunizations Immunization Administration Dates Next Due INFLUENZA VACCINE 05/30/2014 Family History Medical History Relation Name Comments Asthma Father Allergies Maternal Grandmother Cystic Fibrosis Neg Hx Eczema Neg Hx Tuberculosis Neg Hx Relation Name Status Comments Father Maternal Grandmother Social History Tobacco Use Types Packs/Day Years Used Date Smoking Tobacco: Never Smokeless Tobacco: Never Alcohol Use Standard Drinks/Week Comments Not Asked 0 (1 standard drink = 0.6 oz pur e alcohol) Comments No Sex and Gender Information Value Date Recorded Sex Assigned at Not on file Legal Sex Female 5:43 AM AVIATION ENGINEER Gender Identity Not on file Sexual Orientation Not on file Last Filed Vital Signs Vital Sign Reading Time Taken Comments Blood Pressure 102/56 09/20/2019 1:39 PM AVIATION ENGINEER Pulse 103 08/04/2015 9:41 AM AVIATION ENGINEER Temperature 36.6 C (97.9 F) 08/04/2015 9:41 AM AVIATION ENGINEER Respiratory Rate 20 08/04/2015 9:41 AM AVIATION ENGINEER Oxygen Saturation 99% 08/04/2015 9:41 AM AVIATION ENGINEER Inhaled Oxygen Concentration - - Weight 60.8 kg (134 lb 0.6 oz) 09/20/2019 1:39 P M AVIATION ENGINEER Height 159 cm (5' 2.6 ) 09/20/2019 1:39 PM AVIATION ENGINEER Body Mass Index 24.05 09/20/2019 1:39 PM AVIATION ENGINEER Plan of Treatment Health Maintenance Due Date Last Done Comments HIV SCREENING 2019 HPV VACCINE (1 - 3-dose series) 2019 CHLAMYDIA/GONORRHEA SCREENING 2020 MENINGOCOCCAL (Group B) VACC INE SHARED DECISION-MAKING (1 of 2 - Standard) 2020 HEPATITIS C SCREENING 03/02/2022 DTAP/TDAP/TD VACCINES (1 - Tdap) 2023 HEPATITIS B VACCINE (1 of 3 - 19+ 3-dose series) 2023 PNEUMOCOCCAL VACCINE (1 of 2 - PCV) 2023 COVID-19 VACCINE (1 - 2023-2 5 season) 2024 DEPRESSION SCREENING 08/31/2024 INFLUENZA VACCINE (Season Ended) 2025 05/30/20 14 ZOSTER VACCINE (1 of 2) 2054 HIB VACCINE Aged Out No longer eligi ble based on patient's age to complete this topic MENINGOCOCCAL GROUPS A/C/Y/W VACCINE Aged Out No longer eligible b ased on patient's age to complete this topic Insurance [employer] HE[employer] Care Teams Electro Mechanical Technician Relationship Specialty Start Date End Date Kiki Castle MD PCP - General Pediatrics 02/19/16
--- OUTSIDE RECORDS SUMMARY | 2024-12-26 18:13 | XMS_ITS | Encounter Summary ---
Author [facility] Address [address] [place] [address] Phone Care Team Providers Care Curtain Drier Name Role Phone Provider, None Primary Care Provider Unavailabl e Encounter Details Date Type Department Care Team (Late st Contact Info) Description 08/20/2023 Lab Requisition [facility] Laboratory Services [address] [place] [address] Adalgisa Glover MD [address] [place] [address] Social History Tobacco Use Types Packs/Day Years Used Date Smoking Tobacco: Never Assessed Comments Unknown Sex and Gender Information Value Date Recorded Sex Assigned at Female 09/04/2023 1:06 PM WATCH ENGINE OPERATOR Legal Sex Female 9:57 AM WATCH ENGINE OPERATOR Gender Identity Not on file Sexual Orientation Not on file documented as of this encounter Plan of Treatment Not on file documented as of this encounter Procedures Procedure Name Priority Date/Time Associated Diagnosis Comments MUMPS AB, IGG, ALVERNO, MPSG2 Routine 08/20/2023 10:00 AM WATCH ENGINE OPERATOR RUBELLA, IGG, AL[place], RUBG Routine 08/20/2023 10:00 AM WATCH ENGINE OPERATOR VARICELLA AB, IGG, ALVERNO, VAR2 Routine 08/20/2023 10:00 AM WATCH ENGINE OPERATOR HEP B SURF AB, TOTAL, ALVERNO, HBSAB Routine 08/20/2023 10:00 AM WATCH ENGINE OPERATOR UR DRUG SCREEN W/O CONFIRMATION Routine 08/20/2023 10:00 AM WATCH ENGINE OPERATOR documented in this encounter Results * (ABNORMAL) VARICELLA AB, IGG, ALVERNO, VAR2 (08/20/2023 10:00 AM WATCH ENGINE OPERATOR) VARICELLA AB 0.4(L) >=1.1 AI 08/21/2023 11:20 AM WATCH ENGINE OPERATOR [facility] VAR2, VARICELLA INTERP, ALVERNO see below 08/21/2023 11:20 AM WATCH ENGINE OPERATOR [facility] Comment: REFERENCE RANGE: </= 0.8 Negative 0.9 - 1.0 Equivocal >/= 1.1 Positive Blood No Phlebotomy Charged / Unknown 08/20/2023 10:00 AM WATCH ENGINE OPERATOR 08/20/2023 12:32 PM WATCH ENGINE OPERATOR Ihab Christa Glover MD LAB SEND OUTS Final Result [facility] [address] [place] [address], * UR DRUG SCREEN W/O CONFIRMATION (08/20/2023 10:00 AM WATCH ENGINE OPERATOR) UR AMPHETAMINE NEGATIVE NEGATIVE 08/20/2023 6:34 PM WATCH ENGINE OPERATOR [facility] UR BARBITURATE NEGATIVE NEGATIVE 08/20/2023 6:34 PM WATCH ENGINE OPERATOR [facility] UR BENZODIAZEPINES NEGATIVE NEGATIVE 2022 6:34 PM WATCH ENGINE OPERATOR [facility] UR COCAINE METABOLITE NEGATIVE NEGATIVE 08/20/2023 6:34 PM WATCH ENGINE OPERATOR [facility] UR OPIATES NEGATIVE NEGATIVE 08/20/2023 6:34 PM WATCH ENGINE OPERATOR [facility] UR PHENCYCLIDINE NEGATIVE NEGATIVE 08/20/20 6:34 PM WATCH ENGINE OPERATOR [facility] UR CANNABINOID NEGATIVE NEGATIVE 08/20/2023 6:34 PM WATCH ENGINE OPERATOR [facility] Urine Non-Phlebotomy Collection / Unknown 08/20/2023 10:00 AM WATCH ENGINE OPERATOR 08/20/2023 6:09 PM WATCH ENGINE OPERATOR Narrative [facility] - 08/20/2023 6:34 PM WATCH ENGINE OPERATOR This drug of abuse testing is performed solely for medical purposes. THIS IS A SCREENING TEST ONLY. Unconfirmed screening results must not be used for non-medical purposes such as employment testing or legal testing. NOTE: Concentrations below the following thresholds are reported as negative: Cannabinoid (THC) 50 ng/mL Phencyclidine(PCP) 25 ng/mL Cocaine 150 ng/mL Opiates 300 ng/mL Barbiturates 200 ng/mL Amphetamines 500 ng/mL Benzodiazapines 200 ng/mL Confirmatory testing will be done only upon physician request within 48 hours of specimen collection. These results are for medical use only. Adalgisa Glover MD URINE ORDERABLES Final Result [facility] [address] [place] [address], [place] [phone] * MUMPS AB, IGG, ALVERNO, MPSG2 (08/20/2023 10:00 AM WATCH ENGINE OPERATOR) MUMPS VIRUS IGG AB 2.9 >=1.1 AI 08/21/2023 9:53 AM WATCH ENGINE OPERATOR [facility] MUMPS INTRP see below 08/21/2023 9:53 AM WATCH ENGINE OPERATOR [facility] Comment: Positive for Mumps IgG by EIA test, presumed immune to Mumps infection. REFERENCE RANGE </= 0.8 Negative 0.9 - 1.0 Equivocal >/= 1.1 Positive Blood No Phlebotomy Charged / Unknown 08/20/2023 10:00 AM WATCH ENGINE OPERATOR 08/20/2023 12:31 PM WATCH ENGINE OPERATOR Adalgisa Glover MD LAB SEND OUTS Final Result [facility] [address] [place] [address], [place] [phone] * RUBELLA, IGG, ALVERNO, RUBG (08/20/2023 10:00 AM WATCH ENGINE OPERATOR) RUBELLA, IGG 36.0 >=10 IU/mL 08/21/2023 9:53 AM WATCH ENGINE OPERATOR [facility] RUBELLA, IGG INTRP IMMUNE 08/21/2023 9:53 AM WATCH ENGINE OPERATOR [facility] Comment: REFERENCE RANGE >/=10 IU/mL = IMMUNE 8 - 9 IU/mL = EQUIVOCAL </= 7 IU/mL = NOT IMMUNE Blood No Phlebotomy Charged / Unknown 08/20/2023 10:00 AM WATCH ENGINE OPERATOR 08/20/2023 12:31 PM WATCH ENGINE OPERATOR Adalgisa Glover MD LAB SEND OUTS Final Result Performing Organization Address [facility]/ZIP Co de Phone Number [facility] [place] [address], [place] [phone] * (ABNORMAL) HEP B SURF AB, TOTAL, ALVERNO, HBSAB (08/20/2023 10:00 AM WATCH ENGINE OPERATOR) HBSAB, HEP B SURF AB, TOTAL, ALVERNO 11.8(H) <10.0 mIU/mL 08/20/2023 9:11 PM WATCH ENGINE OPERATOR [facility] Comment: According to CDC guidelines, results >/=10 mIU/mL, indicate immunity. Blood No Phlebotomy Charged / Unknown 08/20/2023 10:00 AM WATCH ENGINE OPERATOR 08/20/2023 12:32 PM WATCH ENGINE OPERATOR Adalgisa Glover MD LAB SEND OUTS Final Result Performing Organization Address City/[facility]/ZIP Co de Phone Number [facility] [address] [place] [address], [place] [address], [place] [phone] documented in this encounter Visit Diagnoses Not on filedocumented in this encounter Care Teams Curtain Drier Relationship Specialty Start Date End Date Provider, None [place] PCP - General 09/04/23 documented as of this encounter
--- OUTSIDE RECORDS SUMMARY | 2024-12-26 18:13 | XMS_ITS | Clinical Summary ---
Author Organization [facility] Address [address] [place] [address] Phone Care Team Providers Care Damper Fitter Name Role Phone Provider, None Primary Care Provider Unavailabl e Allergies Active Allergy Reactions Criticality Noted Date Comments Codeine Unknown 09/04/2023 Social History Tobacco Use Types Packs/Day Years Used Date Smoking Tobacco: Never Assessed Alcohol Use Standard Drinks/Week Comments Never 0 (1 standard drink = 0.6 oz pur e alcohol) Comments Unknown Sex and Gender Information Value Date Recorded Sex Assigned at Female 09/04/2023 1:06 PM SETTER AUTOMATIC SPINNING LATHE Legal Sex Female 9:57 AM SETTER AUTOMATIC SPINNING LATHE Gender Identity Not on file Sexual Orientation Not on file Last Filed Vital Signs Vital Sign Reading Time Taken Comments Blood Pressure 148/85 09/04/2023 12:29 PM SETTER AUTOMATIC SPINNING LATHE Pulse 112 09/04/2023 12:29 PM SETTER AUTOMATIC SPINNING LATHE Temperature 36.9 C (98.4 F) 09/04/2023 12:29 PM SETTER AUTOMATIC SPINNING LATHE Respiratory Rate 18 09/04/2023 12:29 PM SETTER AUTOMATIC SPINNING LATHE Oxygen Saturation 100% 09/04/2023 12:29 PM SETTER AUTOMATIC SPINNING LATHE Inhaled Oxygen Concentration - - Weight 61.2 kg (135 lb) 09/04/2023 12:29 PM SETTER AUTOMATIC SPINNING LATHE Height 157.5 cm (5' 2 ) 09/04/2023 12:29 PM SETTER AUTOMATIC SPINNING LATHE Body Mass Index 24.69 09/04/2023 12:29 PM SETTER AUTOMATIC SPINNING LATHE Plan of Treatment Not on file Insurance [facility] OAP Care Teams Damper Fitter Relationship Specialty Start Date End Date Provider, None [place] PCP - General 09/04/23
--- OUTSIDE RECORDS SUMMARY | 2024-12-26 18:13 | XMS_ITS | Referral Summary ---
Author Organization [facility] Address [address] [place] [address] Care Team Providers Care Telecine Operator Name Role Phone Bella Santiago MD Primary Care Provide r Encounters Date Type Department Care Team Description 12/19/2024 Results Follow-Up [facility] Primary Care at [address] [phone] Bella Santiago MD Leukocytosis, unspecified type (Primary Dx) 12/16/2024 2:50 PM CDT Lab [address] [address] Leukocytosis, unspecified type 12/14/2024 Results Follow-Up [facility] Primary Care at [address] [phone] Jackie Cisneros NP 12/12/2024 9:56 AM CDT - 12/12/2024 11:59 [place] [address] STI (sexually transmitted infection) Discharge Disposition: Discharge to home or self care 12/12/2024 Results Follow-Up [facility] Primary Care at [address] [phone] Jackie Cisneros NP 12/12/2024 Results Follow-Up [facility] Primary Care at [address] [phone] Bella Santiago MD Leukocytosis, unspecified type (Primary Dx) 12/12/2024 9:30 AM CDT Lab [address] [address] Fatigue, unspecified type 12/12/2024 8:30 AM CDT Office Visit [facility] Primary Care at [address] [phone] Jackie Cisneros NP Encounter for wellness examination (Primary Dx); Class 1 obesity due to excess calories without serious comorbidity with body mass index (BMI) of 33.0 to 33.9 in adult; Moderate episode of recurrent major depressive disorder (HCC); Anxiety; Generalized convulsive seizures (HCC); Fatigue, unspecified type; Screen for STD (sexually transmitted disease); Dyspareunia in female 12/09/2024 2:40 PM CDT Lab [address] [address] Encounter for wellness examination 10/03/2024 Telephone [facility] Medical [facility] Primary Care at [address] [phone] Bella Santiago MD Additional Services Or Orders from Last 3 Months Allergies Active Allergy Reactions Criticality Noted Date [...] 200 mg at bedtime 60 capsule 11 01/13/20 25 Active Auvi-Q 0.3 mg/0.3 mL auto-injection [...] 450 tablet 3 08/21/20 22 025 Discontin ued(Patie nt Reported) Auvi-Q 0.3 mg/0.3 mL auto-injection [...] vomiting 20 tablet 12/02/19 24 025 Discontin ued(Thera py completed ) Active Problems Problem Noted [...] 01/25/2020 Assessment & Plan (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): New referral to neurology ordered Assessment & [...] (11/18/2022): Added automatically from request for surgery [id number] Immunizations Immunization Administration Dates Next Due DTaP, [...] Unspecified 03/08/2009, 5,2004,05/09 Tdap 03/09/2014 Varicella 03/08/2009,06/10/2005 Social History Tobacco Use Types Packs/Day Years [...] on file Legal Sex Female 11:33 PM 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 Gender Identity Female 01/18/2020 3:37 PM CDT Sexual Orientation Straight 01/18/2020 3: 37 PM CDT Occupation Industry Job Start Date Job End Date Not on file Not on file Not on file Not on file Last Filed Vital Signs Vital Sign Reading Time Taken Comments Blood Pressure 104/80 12/12/2024 8:36 AM CDT Pulse 98 12/12/2024 8:36 AM CDT Temperature 36.8 C (98.2 F) 12/12/2024 8:36 AM CDT Respiratory Rate 20 09/12/2024 8:22 AM 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 Please see pathology report in [facility] for results. Interpretive Data See Clinical Pathology Report under Media section in [facility]. Current Interpretive Data was last revised on 2018. Blood 12/16/2024 3:03 PM CDT 12/16/2024 3:38 PM CDT us Bella Santiago MD LAB BLOOD ORDERABLES Final Result [facility] [place] [facility] Department [place] [address] * Clinical pathology report (12/16/2024 3:03 PM CDT) Miscellaneous 12/16/2024 3:0 3 PM CDT 12/20/2024 8:09 AM CDT Narrative 12/21/2024 10:52 AM CDT [facility] results best viewed via link to PDF [facility] Department of Pathology [address] [place] [id number] Final Report Note to Patients: This report [...] the details. Patient Name: RENETTA GRIMES Address: [address] [place] [address] , [place] [address] Gender: F : 2005 (Age: 19) Service: Location: [facility] : [id number] [facility] #: [id number] Patient Type: [facility] ANCILLARY Taken: 12/16/2024 Received: 12/20/2024 Accessioned: 12/20/2024 Physician(s): Bella Santiago M.D. [facility] Specimen(s) Received A: Blood (serum) Serum [...] determined by the Surgical Pathology Department at [facility] as part of an ongoing quality assurance assistant program and in compliance with federally mandated [...] characteristics determined by the Surgical Pathology Department [facility]. It has not been cleared or approved [...] ORDERABLES Final Result [facility] ([place]) 1 [facility] Department [place] [address] * (ABNORMAL) Differential, auto (12/16/2024 3:03 PM CDT) Neutrophil abs 6.64(H) 1.50 - 6.50 K/cumm Imm gran abs 0.02 0.00 - 0.10 K/cumm [facility] ([place]) Lymphocyte abs 3.14 0.80 - 3.30 K/cumm [facility] ([place]) Monocyte abs 0.59 0.20 - 0.80 K/cumm [...] revised on 2017. Monocyte pct 5.6 % [facility] ([place]) Comment: Interpretive Data [...] BLOOD ORDERABLES Final Result Performing Organization Address [facility] Co de Phone Number [facility] ([place]) [address] [place] [address] * HIV 1/2 Antibody plus p24 Antigen Blood (12/16/2024 3:03 PM CDT) Pathologist [facility] HIV 1/2 ab + p24 ag Nonreactive Nonreactive Comment: Nonreactive for HIV-1 antigen and HIV-1/HIV-2 antibodies. No laboratory evidence of HIV infection. If acute HIV infection is suspected, consider testing for HIV-1 RNA. Testing performed by: [facility], [address] [place] [address], [id number] Blood 12/16/2024 3:03 PM CDT 12/16/2024 5:27 PM CDT Bella Santiago MD LAB MICROBIOLOGY - GE NERAL ORDERABLES Final Result Performing Organization Address [facility] Co de Phone Number [facility] ([place]) [address] [place] [address] [address] [place] [address] * CMV, IgG and IgM antibodies Blood (12/16/2024 3:03 PM CDT) Pathologist [facility] CMV IgG Negative Negative Comment: Interpretive Data [...] or recent CMV infection. Testing performed by: [facility], [address] [facility], [place]., [address] CMV IgM Negative Negative [facility] ([place]) Comment: Interpretive Data Negative - Negative CMV [...] (primary, reactivation, or reinfection). Testing performed by: [facility], [address] [place]., [address] Blood 12/16/2024 3:03 PM CDT 12/16/2024 5:47 PM CDT us Bella Santiago MD LAB MICROBIOLOGY - [facility] ORDERABLES Final Result [facility] ([place]) 1 [facility] Department [place] [address] * (ABNORMAL) CBC with auto differential (12/16/2024 3:03 PM CDT) WBC 10.54(H) 3.80 - 9.90 K/cumm Hgb 13.3 11.9 - 15.5 g/dL [facility] ([place]) Hct 40.3 35.6 - 45.5 % [...] RDW SD 39.3 35.7 - 48.1 fL [facility] ([place]) NRBC abs 0.00 0.00 - 0.01 K/cumm [facility] ([place]) Blood 12/16/2024 3:03 PM CDT 12/16/2024 3:38 PM CDT Bella Santiago MD LAB BLOOD ORDERABLES Final Result [facility] ([place]) 1 [facility] Department [place] [address] * (ABNORMAL) David-Casarez virus (EBV) antibody panel Blood (12/16/2024 3:03 PM CDT) EBV nuclear Ab Positive(A) Negative Comment: Indicates the presence of detectable IgG antibody to EBV Nuclear Antigen. Testing performed by: [facility], [address] [place]., [address] EBV VCA IgG Positive(A) Negative [facility] ([place]) Comment: Indicates the presence of antibody; 90% of the adult population will have been infected with EBV sometime in the past. Testing performed by: [facility], [address] [place]., [address] EBV VCA IgM Positive(A) Negative [facility] ([place]) Comment: A positive test result indicates a current or reactivated infection with EBV. Testing performed by: [facility], [address] [place]., [address] EBV interp Past infection [facility] ([place]) Comment:Testing performed by : [facility], [address] [place]., [address] Blood 12/16/2024 3:03 PM CDT 12/16/2024 5:47 PM CDT Bella Santiago MD LAB MICROBIOLOGY - GE NERAL ORDERABLES Final Result [facility] ([place]) 1 [facility] [place] [address] * Erythrocyte sedimentation rate (12/16/2024 3:03 PM CDT) [facility] Erythrocyte sedimentation rate 8 1 - 20 mm/hr Blood 12/16/2024 3:03 PM CDT 12/16/2024 3:38 PM CDT Bella Santiago MD LAB BLOOD ORDERABLES Final Result [facility] ([place]) 1 [place] [address] * CRP (acute phase) (12/16/2024 3:03 PM CDT) [facility] CRP <3.0 <=10.0 mg/L Blood 12/16/2024 3:03 PM CDT 12/16/2024 3:38 PM CDT Bella Santiago MD LAB BLOOD ORDERABLES Final Result [facility] ([place]) [address] [place] [address] * Protein electrophoresis with reflex, serum with interpretation (12/16/2024 3:03 PM CDT) [facility] Protein, sr 7.1 6.2 - 8.2 g/dL Comment:Testing performed by : [facility], [address] [place] [address], [place]., [address] Albumin 4.6 3.2 - 5.0 g/dL [facility] ([place]) Comment:Testing performed by : [facility], [address] [place] [address], [place]., [address] Alpha-1 globulin 0.3 0.2 - 0.4 g/dL [facility] ([place]) Comment:Testing performed by : [facility], [address] [place] [address], [place]., [address] Alpha-2 globulin 0.7 0.5 - 1.0 g/dL [facility] ([place]) Comment:Testing performed by : [facility], [address] [place] [address]., [address] Beta-1 globulin 0.5 0.3 - 0.6 g/dL [facility] ([place]) Comment:Testing performed by : [facility], [address] [place] [address]., [address] Beta-2 globulin 0.3 0.2 - 0.6 g/dL [facility] ([place]) Comment:Testing performed by : [facility], [address] [place] [address]., [address] Gamma globulin 0.8 0.5 - 1.7 g/dL [facility] ([place]) Comment:Testing performed by : [facility], [address] [place] [address], [address] SPEP interp See Cl Path Rpt [facility] ([place]) Comment:Testing performed by : [facility], [address] [place] [address], [address] Blood 12/16/2024 3:03 PM CDT 12/16/2024 5:27 PM CDT Bella Santiago MD LAB BLOOD ORDERABLES Final Result [facility] ([place]) 1 [facility] Department [place] [address] * (ABNORMAL) Comprehensive metabolic panel (12/16/2024 3:03 PM CDT) Sodium 136 135 - 145 mmol/L Potassium, pl 3.8 3.3 - 4.9 mmol/L [facility] ([place]) Chloride 103 97 - 110 mmol/L [facility] ([place]) CO2 22 22 - 32 mmol/L [facility] ([place]) Anion gap 11 2 - 15 mmol/L [facility] ([place]) BUN 12 6 - 25 mg/dL [facility] ([place]) Creatinine 0.85 0.60 - 1.10 mg/dL [facility] ([place]) Glucose 90 70 - 199 mg/dL [facility] ([place]) Comment: Interpretive Data Fasting glucose [...] MD LAB BLOOD ORDERABLES Final Result [facility]) [address] [place] [address] Department [place] [address] * Clinical pathology report (12/16/2024 8:25 AM CDT) Miscellaneous 12/16/2024 8:2 5 AM CDT 12/19/2024 8:25 AM CDT Narrative 12/19/2024 3:59 PM CDT EPIC results best viewed via link to PDF [facility] Department of Pathology [address] [place] [address] Final Report Note to Patients: This report [...] the details. Patient Name: RENETTA GRIMES Address: [facility] [place], [place] [address] Gender: F : 2005 (Age: 19) Service: Location: N : [id number] Hospital #: [id number] Patient Type: [facility] ANCILLARY Taken: 12/16/2024 Received: 12/19/2024 Accessioned: 12/19/2024 [...] determined by the Surgical Pathology Department at [facility] as part of an ongoing quality assurance assistant program and in compliance with federally mandated [...] characteristics determined by the Surgical Pathology Department [facility]. It has not been cleared or approved by the U. S. Food and Drug Administration. REPORT IMAGES AND SCANNED DOCUMENTS, IF INCLUDED, ONLY VIEWABLE IN PDF VERSION OF REPORTe o Bella Santiago MD LAB PATHOLOGY ORDERAB LES Final Result * N. gonorrhoeae/C. trachomatis Amplification Urine (12/12/2024 9:56 AM CDT) C. trachomatis Not Detected [facility] Comment:Testing performed by : [facility], 1 [facility] [place]., [address] N. gonorrhoeae Not Detected [facility] Comment: Interpretive Data This assay detects Chlamydia trachomatis and Neisseria gonorrhoeae by nucleic acid amplification testing (NAAT). This assay has been cleared by the [place] Food and Drug administration. The performance characteristics of this test have been verified by the [facility] Molecular Infectious Disease laboratory. The performance characteristics of this test have not been evaluated in individuals less than 14 years of age. Current Interpretive Data was last revised on 2023. Testing performed by: [facility], [address] [facility] [place]., [address] Urine (None) 12/12/2024 9:56 AM CDT 12/13/2024 10:09 AM CDT Jackie Cisneros NP LAB MICROBIOLOGY - GENER AL ORDERABLES Final Result [facility] [address] Department [place] [address] [facility] * (ABNORMAL) Vitamin D 25 hydroxy (12/12/2024 9:34 AM CDT) Pathologist [facility] Vitamin D 25-OH 24(L) 30 - 80 ng/mL Blood 12/12/2024 9:34 AM CDT 12/12/2024 9:39 AM CDT Jackie Cisneros ENGINE SERVICE REPAIRER LAB BLOOD ORDERABLES Fin al Result Performing Organization Address City/[facility]/ZIP Co de Phone Number [facility] ([place]) [address] [place] [address] [address] [place] [address] * Vitamin B12 (12/12/2024 9:34 AM CDT) [facility] Vitamin B12 270 230 - 1,250 pg/mL Blood 12/12/2024 9:34 AM CDT 12/12/2024 9:39 AM CDT Jackie Cisneros ENGINE SERVICE REPAIRER LAB BLOOD ORDERABLES Fin al Result Performing Organization Address City/[facility] Co de Phone Number [facility] ([place]) 1 [facility] [address] [place] [address] * eGFR (12/09/2024 3:03 PM CDT) [facility] eGFR >90 >=60 mL/min/1. 73 m2 Comment: [...] Inclusion of Race in Diagnosing Kidney Disease, BECKYSN 2020). The CKD-EPI equation should not be used for patients with unstable renal function and has not been validated in children and those over 70. Current interpretive data was last reviewed 2021. Blood 12/09/2024 3:03 PM CDT 12/09/2024 4:14 PM CDT us Bella Santiago MD LAB BLOOD ORDERABLES Final Result [facility] ([place]) 1 [facility] Department [place] [address] * (ABNORMAL) Differential, auto (12/09/2024 3:03 PM CDT) Neutrophil abs 6.87(H) 1.50 - 6.50 K/cumm [...] 3:03 PM CDT 12/09/2024 4:14 PM CDT Bella Santiago MD LAB BLOOD ORDERABLES Final Result Performing Organization Address City/[facility]/ZIP Co de Phone Number [facility] ([place]) 1 [facility] of [address] [place] [address] * Thyroid Function Mcnairy (12/09/2024 3:03 PM CDT) [facility] TSH 0.73 0.30 - 4.20 mcIUnit/mL Blood 12/09/2024 3:03 PM CDT 12/09/2024 4:14 PM CDT Narrative [facility] ([place]) - 12/09/2024 5:12 PM CDT Fasting Bella Santiago MD LAB BLOOD ORDERABLES Final Result [facility] ([place]) 1 [facility] [place] [address] * (ABNORMAL) CBC with auto differential (12/09/2024 3:03 PM CDT) WBC 10.93(H) 3.80 - 9.90 K/cumm Hgb 13.8 11.9 - 15.5 g/dL [facility] ([place]) Hct 41.6 35.6 - 45.5 % [facility] ([place]) Plt 397 150 - 400 K/cumm [facility] ([place]) MPV 9.3 9.1 - 12.3 fL [facility] ([place]) RBC 4.56 3.90 - 5.20 M/cumm [facility] ([place]) MCV 91.2 81.3 - 96.4 fL [facility] ([place]) MCH 30.3 27.1 - 33.3 pg [facility] ([place]) MCHC 33.2 32.3 - 35.7 g/dL [facility] ([place]) RDW CV 11.9 11.1 - 14.9 % [facility] ([place]) RDW SD 39.4 35.7 - 48.1 fL [facility] ([place]) NRBC abs 0.00 0.00 - 0.01 K/cumm [facility] ([place]) Blood 12/09/2024 3:03 PM CDT 12/09/2024 4:14 PM CDT Narrative [facility] ([place]) - 12/09/2024 4:18 PM CDT Fasting us Bella Santiago MD LAB BLOOD ORDERABLES Final Result [facility]) 1 [facility] Department [place] [address] * Hemoglobin A1c (12/09/2024 3:03 PM CDT) Pathologist [facility] Hgb A1C 4.6 4.0 - 5.6 % Estimated Average Glucose 85 mg/dL [facility] ([place]) Comment: The ADA recommends reporting an estimated Average Glucose (eAG) with all Hemoglobin A1c results using the equation derived from a study of 507 normal and diabetic adults. Minority populations were underrepresented and children were not included. (Diabetes Care 31:2237-7380, 2008). The eAG is not equivalent to a fasting glucose. Blood 12/09/2024 3:03 PM CDT 12/09/2024 4:14 PM CDT Narrative [facility] ([place]) - 12/09/2024 4:59 PM CDT Fasting Bella Santiago MD LAB BLOOD ORDERABLES Final Result [facility] ([place]) 1 [facility] Department [place] [address] * Lipid panel (12/09/2024 3:03 PM CDT) Cholesterol 186 30 - 199 mg/dL Comment: [...] on 2018. Triglycerides 133 <=149 mg/dL [facility] ([place]) Comment: Interpretive Data [...] NCEP Expert Panel. Circulation 2004;110:227 3. Mark M et al. GAURI Cardiol. 2019December 29;5(5):540-548. doi: 10.1001/jamacardio.2020.0013 Current Interpretive Data was [...] last revised on 2018. Chol/HDL ratio 4 [facility] ([place]) Blood 12/09/2024 3:03 PM CDT 12/09/2024 4:14 PM CDT Narrative [facility] ([place]) - 12/09/2024 5:06 PM CDT Fasting us Bella Santiago MD LAB BLOOD ORDERABLES Final Result [facility] ([place]) 1 [facility] Department [place] [address] * (ABNORMAL) Comprehensive metabolic panel (12/09/2024 3:03 PM CDT) Sodium 139 135 - 145 mmol/L Potassium, pl 3.7 3.3 - 4.9 mmol/L [facility] ([place]) Chloride 106 97 - 110 mmol/L [facility] ([place]) CO2 21(L) 22 - 32 [...] Bilirubin, total 0.3 0.1 - 1.2 mg/dL [facility] ([place]) Protein, pl 7.3 6.5 - 8.5 g/dL [facility] ([place]) Albumin 4.5 3.5 - 5.0 g/dL [facility] ([place]) Alk phos 75 40 - 130 Units/L [facility] ([place]) ALT 9 7 - 45 Units/L [facility] ([place]) AST 15 10 - 45 Units/L [facility] ([place]) Blood 12/09/2024 3:03 PM CDT 12/09/2024 4:14 PM CDT Narrative [facility] ([place]) - 12/09/2024 5:06 PM CDT Fasting Bella Santiago MD LAB BLOOD ORDERABLES Final Result [facility] ([place]) [address] [facility] [employer] [address] * Hepatitis C antibody (04/08/2023 10:27 AM CDT) Pathologist [facility] Hep C Ab Nonreactive Nonreactive [facility] ([place]) Comment: Interpretive Data Nonreactive: Antibodies to [...] last revised on 2019. Testing performed by: [facility], [address] [place] [address]., [id number] Blood 04/08/2023 10:2 7 AM CDT 04/08/2023 5:08 PM CDT Bella Santiago MD LAB MICROBIOLOGY - GE NERAL ORDERABLES Final Result [facility] ([place]) 1 [facility] [place] [address] from Last 3 Months or Most Recently Relevant to Health Maintenance Insurance [facility] [id number] [facility] [id number] [facility] [id number] [facility] [id number] Member Subscriber Plan / Payer (Ef fective 2021-Present) Name:Renetta Grimes Member ID:[id number] Relation to Subscriber:Child Name:CORIN STEPHENS Subscriber ID:[id number] Date of :1974 (Home) Address: [facility] [place] [address] Payer ID:[id number] Type:[employer] HMO/PPO Address: [address] Advance Directives For more information, please contact: [phone] * Full Code (Latest Code Status on File) Date Activated Date Inactivated Comments 12/11/2022 7:11 AM 12/11/2022 2:24 PM Care Teams Telecine Operator Relationship Specialty Start Date End Date Bella Santiago MD [address] [facility] [place] [address] PCP - General Family Medicine 04/06/23
[2024-12-26 18:54] VITALS: BP 116/73; PULSE 87; RESP 18; TEMP 36.8; O2SAT 96
== END 2024-12-26 18:54 | disposition home or self-care (01) ==
PROVIDERS: Emergency Provider Emergency Medicine
DX: T78.40XA Allergy, unspecified, initial encounter (principal); Z91.018 Allergy to other foods; G40.909 Epilepsy, unspecified, not intractable, without status epilepticus; J45.909 Unspecified asthma, uncomplicated; F43.10 Post-traumatic stress disorder, unspecified; X58.XXXA Exposure to other specified factors, initial encounter
CPT/HCPCS: 71045; 96361; 96374; 96375; 99284; J2919; J7030

== ENCOUNTER 2025-03-21 12:22 | Emergency (ER) | payer OTHER, SELFPAY ==
--- OUTSIDE RECORDS SUMMARY | 2025-03-21 12:24 | XMS_ITS | Clinical Summary ---
Author Organization [facility] Address [address] [place] [address] Phone Care Team Providers Care Mock Up Builder Name Role Phone Provider, None Primary Care [...] Sex Assigned at Female 09/04/2023 1:06 PM TAKE OFF MAN Legal Sex Female 9:57 AM TAKE OFF MAN Gender Identity Not on file Sexual Orientation Not on file Last Filed Vital Signs Vital Sign Reading Time Taken Comments Blood Pressure 148/85 09/04/2023 12:29 PM TAKE OFF MAN Pulse 112 09/04/2023 12:29 PM TAKE OFF MAN Temperature 36.9 C (98.4 F) 09/04/2023 12:29 PM TAKE OFF MAN Respiratory Rate 18 09/04/2023 12:29 PM TAKE OFF MAN Oxygen Saturation 100% 09/04/2023 12:29 PM TAKE OFF MAN Inhaled Oxygen Concentration - - Weight 61.2 kg (135 lb) 09/04/2023 12:29 PM TAKE OFF MAN Height 157.5 cm (5' 2) 09/04/2023 12:29 PM TAKE OFF MAN Body Mass Index 24.69 09/04/2023 12:29 PM TAKE OFF MAN Plan of Treatment Not on file Insurance [facility] OAP Care Teams Mock Up Builder Relationship Specialty Start Date End Date Provider, None [place] PCP - General 09/04/23
--- OUTSIDE RECORDS SUMMARY | 2025-03-21 12:24 | XMS_ITS | Encounter Summary ---
Author [facility] Address [address] [place] [address] Phone Care Team Providers Care Sld Educational Aide Name Role Phone Provider, None Primary Care Provider Unavailabl e Encounter Details Date Type Department Care Team (Late st Contact Info) Description 08/20/2023 Lab Requisition [facility] Laboratory Services [address] [place] [address] Adalgisa Glover MD [address] [place] [address] Social History Tobacco Use Types Packs/Day Years Used Date Smoking Tobacco: Never Assessed Comments Unknown Sex and Gender Information Value Date Recorded Sex Assigned at Female 09/04/2023 1:06 PM MAJOR GIFTS DIRECTOR Legal Sex Female 9:57 AM MAJOR GIFTS DIRECTOR Gender Identity Not on file Sexual Orientation Not on file documented as of this encounter Plan of Treatment Not on file documented as of this encounter Procedures Procedure Name Priority Date/Time Associated Diagnosis Comments MUMPS AB, IGG, ALVERNO, MPSG2 Routine 08/20/2023 10:00 AM MAJOR GIFTS DIRECTOR RUBELLA, IGG, ALVERNO, RUBG Routine 08/20/2023 10:00 AM MAJOR GIFTS DIRECTOR VARICELLA AB, IGG, ALVERNO, VAR2 Routine 08/20/2023 10:00 AM MAJOR GIFTS DIRECTOR HEP B SURF AB, TOTAL, ALVERNO, HBSAB Routine 08/20/2023 10:00 AM MAJOR GIFTS DIRECTOR UR DRUG SCREEN W/O CONFIRMATION Routine 08/20/2023 10:00 AM MAJOR GIFTS DIRECTOR documented in this encounter Results * (ABNORMAL) VARICELLA AB, IGG, ALVERNO, VAR2 (08/20/2023 10:00 AM MAJOR GIFTS DIRECTOR) VARICELLA AB 0.4(L) >=1.1 AI 08/21/2023 11:20 AM MAJOR GIFTS DIRECTOR [facility] VAR2, VARICELLA INTERP, ALVERNO see below 08/21/2023 11:20 AM MAJOR GIFTS DIRECTOR [facility] Comment: REFERENCE RANGE: </= 0.8 Negative 0.9 - 1.0 Equivocal >/= 1.1 Positive Blood No Phlebotomy Charged / Unknown 08/20/2023 10:00 AM MAJOR GIFTS DIRECTOR 08/20/2023 12:32 PM MAJOR GIFTS DIRECTOR Ihab Christa Glover MD LAB SEND OUTS Final Result [facility] [employer] [address] [place] [address], * UR DRUG SCREEN W/O CONFIRMATION (08/20/2023 10:00 AM MAJOR GIFTS DIRECTOR) UR AMPHETAMINE NEGATIVE NEGATIVE 08/20/2023 6:34 PM MAJOR GIFTS DIRECTOR [facility] UR BARBITURATE NEGATIVE NEGATIVE 08/20/2023 6:34 PM MAJOR GIFTS DIRECTOR [facility] UR BENZODIAZEPINES NEGATIVE NEGATIVE 2022 6:34 PM MAJOR GIFTS DIRECTOR [facility] UR COCAINE METABOLITE NEGATIVE NEGATIVE 08/20/2023 6:34 PM MAJOR GIFTS DIRECTOR [facility] UR OPIATES NEGATIVE NEGATIVE 08/20/2023 6:34 PM MAJOR GIFTS DIRECTOR [facility] UR PHENCYCLIDINE NEGATIVE NEGATIVE 08/20/20 6:34 PM MAJOR GIFTS DIRECTOR [facility] UR CANNABINOID NEGATIVE NEGATIVE 08/20/2023 6:34 PM MAJOR GIFTS DIRECTOR [facility] Urine Non-Phlebotomy Collection / Unknown 08/20/2023 10:00 AM MAJOR GIFTS DIRECTOR 08/20/2023 6:09 PM MAJOR GIFTS DIRECTOR Narrative [facility] - 08/20/2023 6:34 PM MAJOR GIFTS DIRECTOR This drug of abuse testing is performed [...] Adalgisa Glover MD URINE ORDERABLES Final Result [facility] [address] [place] [address], [place] [phone] * MUMPS AB, IGG, ALVERNO, MPSG2 (08/20/2023 10:00 AM MAJOR GIFTS DIRECTOR) MUMPS VIRUS IGG AB 2.9 >=1.1 AI 08/21/2023 9:53 AM MAJOR GIFTS DIRECTOR [facility] MUMPS INTRP see below 08/21/2023 9:53 AM MAJOR GIFTS DIRECTOR [facility] Comment: Positive for Mumps IgG by EIA test, presumed immune to Mumps infection. REFERENCE RANGE </= 0.8 Negative 0.9 - 1.0 Equivocal >/= 1.1 Positive Blood No Phlebotomy Charged / Unknown 08/20/2023 10:00 AM MAJOR GIFTS DIRECTOR 08/20/2023 12:31 PM MAJOR GIFTS DIRECTOR Adalgisa Glover MD LAB SEND OUTS Final Result [facility] [employer] [facility] [address] [place] [address], [place] [phone] * RUBELLA, IGG, ALVERNO, RUBG (08/20/2023 10:00 AM MAJOR GIFTS DIRECTOR) RUBELLA, IGG 36.0 >=10 IU/mL 08/21/2023 9:53 AM MAJOR GIFTS DIRECTOR [facility] RUBELLA, IGG INTRP IMMUNE 08/21/2023 9:53 AM MAJOR GIFTS DIRECTOR [facility] Comment: REFERENCE RANGE >/=10 IU/mL = IMMUNE 8 - 9 IU/mL = EQUIVOCAL </= 7 IU/mL = NOT IMMUNE Blood No Phlebotomy Charged / Unknown 08/20/2023 10:00 AM MAJOR GIFTS DIRECTOR 08/20/2023 12:31 PM MAJOR GIFTS DIRECTOR Adalgisa Glover MD LAB SEND OUTS Final Result Performing Organization Address [facility]/ZIP Co de Phone Number MICHELLE [employer] [facility] [place] [address], [place] [phone] * (ABNORMAL) HEP B SURF AB, TOTAL, ALVERNO, HBSAB (08/20/2023 10:00 AM MAJOR GIFTS DIRECTOR) HBSAB, HEP B SURF AB, TOTAL, ALVERNO 11.8(H) <10.0 mIU/mL 08/20/2023 9:11 PM MAJOR GIFTS DIRECTOR [facility] Comment: According to CDC guidelines, results >/=10 mIU/mL, indicate immunity. Blood No Phlebotomy Charged / Unknown 08/20/2023 10:00 AM MAJOR GIFTS DIRECTOR 08/20/2023 12:32 PM MAJOR GIFTS DIRECTOR Adalgisa Glover MD LAB SEND OUTS Final Result Performing Organization Address City/[facility]/ZIP Co de Phone Number [facility]HELLE [employer] [address] [place] [address], [place] [address], [place] [phone] documented in this encounter Visit Diagnoses Not on filedocumented in this encounter Care Teams Sld Educational Aide Relationship Specialty Start Date End Date Provider, None [place] PCP - General 09/04/23 documented as of this encounter
--- OUTSIDE RECORDS SUMMARY | 2025-03-21 12:24 | XMS_ITS | Referral Summary ---
Author Organization [facility] Address [address] [place] [address] Care Team Providers Care Regrinder Operator Name Role Phone Bella Santiago MD Primary Care Provide r Allergies Active Allergy Reactions Criticality Noted Date Comments Codeine Rash Medium 04/26/2014 Pistachio Nut Shortness of breath High 03/25/2021 Tree Nuts Anaphylaxis High 09/24/2015 Also cashews and walnuts Medications folic acid (FOLVITE) 400 mcg tablet 1 Active ibuprofen (ADVIL,MOTRIN) 600 mg tablet Take 1 tablet (600 mg total) by mouth every 6 (six) hours as needed for pain for up to 30 doses 30 tablet 4 Active zonisamide (ZONEGRAN) 100 mg capsuleIndicati ons:Partial Epilepsy Treatment Adjunct Take 100 mg at bedtime for 2 weeks, then take 200 mg at bedtime 60 capsule 11 5 Active Auvi-Q 0.3 mg/0.3 mL auto-injection syringeIndicati ons:Anaphylaxis Inject 0.3 mL (0.3 mg total) into the muscle as instructed as needed for anaphylaxis 3 each 5 Active escitalopram (LEXAPRO) 20 mg tablet Take 1 tablet (20 mg total) by mouth daily 90 tablet 1 5 Active Active Problems Problem Noted Date Diagnosed [...] 01/25/2020 Assessment & Plan (07/04/2024 4:38 PM LEATHER POLISHER): New referral to neurology ordered Assessment & [...] (11/18/2022): Added automatically from request for surgery [id number] Immunizations Immunization Administration Dates Next Due DTaP, [...] on file Legal Sex Female 11:33 PM LEATHER POLISHER Gender Identity Female 01/18/2020 3:37 PM CDT [...] CDT Respiratory Rate 20 09/12/2024 8:22 AM LEATHER POLISHER Oxygen Saturation 99% 12/12/2024 8:36 AM CDT Inhaled Oxygen Concentration - - Weight 73.5 kg (162 lb) 12/12/2024 8:36 AM CDT Height 157.5 cm (5' 2) 12/12/2024 8:36 AM CDT Body Mass Index 29.63 12/12/2024 8:36 AM CDT Plan of Treatment Not on file Procedures Procedure Name Priority Date/Time Associated Diagnosis Comments N. GONORRHOEAE/C. TRACHOMATIS AMPLIFICATION Routine 12/12/2024 9:56 AM CDT STI (sexually transmitted infection) HEPATITIS C ANTIBODY Routine 04/08/2023 10:27 AM CDT Encounter for wellness examination from Last 3 Months or Most Recently Relevant to Health Maintenance Results * N. gonorrhoeae/C. trachomatis Amplification Urine (12/12/2024 9:56 AM CDT) Pathologist [facility] C. trachomatis Not Detected [facility] Comment:Testing performed by : [facility], [address] [facility] [place] [address] N. gonorrhoeae Not Detected [facility] Comment: Interpretive Data This assay detects Chlamydia trachomatis and Neisseria gonorrhoeae by nucleic acid amplification testing (NAAT). This assay has been cleared by the [place] Food and Drug administration. The performance characteristics of this test have been verified by the [facility] Molecular Infectious Disease laboratory. The performance characteristics of this test have not been evaluated in individuals less than 14 years of age. Current Interpretive Data was last revised on 2023. Testing performed by: [facility], [address] [facility] [place] [address] Urine (None) 12/12/2024 9:56 AM CDT 12/13/2024 10:09 AM CDT Jackie Cisneros NP LAB MICROBIOLOGY - GENER AL ORDERABLES Final Result Performing Organization Address City/[facility]/ZIP Co de Phone Number EVGENY [address] [place] [address] BJ * Hepatitis C antibody (04/08/2023 10:27 AM CDT) Hep C Ab Nonreactive Nonreactive EVGENY HOOKER ([place]) Comment: Interpretive Data Nonreactive: Antibodies to HCV [...] last revised on 2019. Testing performed by: [facility], [address] [place] [address]., [address] Blood 04/08/2023 10:2 7 AM CDT 04/08/2023 5:08 PM CDT Bella Santiago MD LAB MICROBIOLOGY - GE NERAL ORDERABLES Final Result Performing Organization Address City/[facility] Co de Phone Number EVGENY HOOKER ([place]) [address] [facility] Department [place] [address] from Last 3 Months or Most Recently Relevant to Health Maintenance Insurance [facility] [id number] [facility] [id number] [facility] [id number] [facility] [id number] Member Subscriber Plan / Payer ( fective 2021-Present) Name:Mikala Grimes Member ID:[id number] Relation to Subscriber:Child Name:NEYDA STEPHENSCHELSEA Hansen Subscriber ID:[id number] Date of :1973 (Home) Address: [facility] [place] [address] Payer ID:[id number] Type:HEALTHF[employer]ra HMO/PPO Address: [address] Advance Directives For more information, please contact: [phone] * Full Code (Latest Code Status on File) Date Activated Date Inactivated Comments 12/11/2022 7:11 AM 12/11/2022 2:24 PM Care Teams Regrinder Operator Relationship Specialty Start Date End Date Bella Santiago MD [address] [place] [address] DR [address] [place] [address] PCP - General Family Medicine 04/06/23
--- OUTSIDE RECORDS SUMMARY | 2025-03-21 12:24 | XMS_ITS | Clinical Summary ---
Author Organization [facility] Address [address] [place] [address] Care Team Providers Care House Decorator Name Role Phone Kiki Castle MD Primary Care Provider [phone] Source Comments [facility],non-owned Affiliates and Associated Physician Practices is amultiple site organization consisting of ambulatory clinics and hospital sitesin [place], [place], [place] and [place]. This disclosure is being madepursuant to the Care Everywhere program and may not contain all information available regarding this patient. Last updated 18.[facility] Mister Spex Allergies Active Allergy Reactions Criticality Noted Date [...] on file Legal Sex Female 5:43 AM CRIME DATA SPECIALIST Gender Identity Not on file Sexual Orientation Not on file Last Filed Vital Signs Vital Sign Reading Time Taken Comments Blood Pressure 102/56 09/20/2019 1:39 PM CRIME DATA SPECIALIST Pulse 103 08/04/2015 9:41 AM CRIME DATA SPECIALIST Temperature 36.6 C (97.9 F) 08/04/2015 9:41 AM CRIME DATA SPECIALIST Respiratory Rate 20 08/04/2015 9:41 AM CRIME DATA SPECIALIST Oxygen Saturation 99% 08/04/2015 9:41 AM CRIME DATA SPECIALIST Inhaled Oxygen Concentration - - Weight 60.8 kg (134 lb 0.6 oz) 09/20/2019 1:39 P M CRIME DATA SPECIALIST Height 159 cm (5' 2.6) 09/20/2019 1:39 PM CRIME DATA SPECIALIST Body Mass Index 24.05 09/20/2019 1:39 PM CRIME DATA SPECIALIST Plan of Treatment Health Maintenance Due Date [...] 2023-2 5 season) 2024 DEPRESSION SCREENING 08/31/2024 PAP SMEAR 2025 INFLUENZA VACCINE (#1) 2025 05/30/2014 ZOSTER VACCINE (1 of 2) 2054 HIB VACCINE Aged Out No longer eligi ble based on patient's age to complete this topic MENINGOCOCCAL GROUPS A/C/Y/W VACCINE Aged Out No longer eligible b ased on patient's age to complete this topic Insurance [employer] Care Teams House Decorator Relationship Specialty Start Date End Date Kiki Castle MD PCP - General Pediatrics 02/19/16
--- OUTSIDE RECORDS SUMMARY | 2025-03-21 12:24 | XMS_ITS | Encounter Summary ---
Author Organization [facility] Address [address] [place] [address] Phone Care Team Providers Care Celluloid Trimmer Name Role Phone Kiki Castle MD Primary Care Provider Reinaldo Morley MD Primary Care Provider [phone] Bella Santiago MD Primary Care Provide r Encounter Details Date Type Department Care Team (Late st Contact Info) Description 08/22/2021 Telephone [facility] Pediatric Neurology [facility] [address] [place] [address] Franky Berumen CMA Social History Tobacco Use Types Packs/Day Years Used Date Smoking Tobacco: Never Smokeless Tobacco: Never Comments No Sex and Gender Information Value Date Recorded Sex Assigned at Not on file Legal Sex Female 11:33 PM MARINATOR Gender Identity Female 01/18/2020 3:37 PM CDT [...] documented as of this encounter Care Teams Celluloid Trimmer Relationship Specialty Start Date End Date Kiki Castle MD PCP - General 06/26/17 10/20/22 Reinaldo Morley MD [address] [place] [address] PCP - General Family Medicine 10/21/22 04/05/23 Bella Santiago MD [address] [place] [address] PCP - General Family Medicine 04/06/23 documented as of this encounter
--- OUTSIDE RECORDS SUMMARY | 2025-03-21 12:24 | XMS_ITS | Clinical Summary ---
Author Organization [facility] Address [address] [place] [address] Care Team Providers Care Aix Administrator Name Role Phone Bella Santiago MD Primary [...] 01/25/2020 Assessment & Plan (07/04/2024 4:38 PM HISTORIC CLOTHING AND COSTUME MAKER): New referral to neurology ordered Assessment & [...] (11/18/2022): Added automatically from request for surgery [id number] Immunizations Immunization Administration Dates Next Due DTaP, [...] reflu x disease) 4 months olds Asthma 2010 Brain concussion spring 2017 Bright red rectal bleeding 11/18/2022 Hematochezia 11/18/2022 Added automatica lly from request for surgery [id number] Family History Medical History Relation Name Comments [...] on file Legal Sex Female 11:33 PM HISTORIC CLOTHING AND COSTUME MAKER Gender Identity Female 01/18/2020 3:37 PM CDT [...] CDT Respiratory Rate 20 09/12/2024 8:22 AM HISTORIC CLOTHING AND COSTUME MAKER Oxygen Saturation 99% 12/12/2024 8:36 AM CDT Inhaled Oxygen Concentration - - Weight 73.5 kg (162 lb) 12/12/2024 8:36 AM CDT Height 157.5 cm (5' 2) 12/12/2024 8:36 AM CDT Body Mass Index 29.63 12/12/2024 8:36 AM CDT Plan of Treatment Health Maintenance Due Date Last Done Comments Cervical Cancer Screening 2004 Pneumococcal vaccine <65 (1 of 1 - PPSV23) 2010 03/10/2005, 2004, 2004, Additional history exists Meningococcal B Vaccine (2 o f 2 - Bexsero SCDM 2-dose series) 11/07/2020 05/10/2020 DTaP/Tdap/Td Vaccine (7 - Td or Tdap) 03/09/2024 03/09/2014, 03/08/2009, 06/10/2005, Additional history exists Influenza Vaccine (#1) 2025 , 05/28/2022, 06/08/2021, Additional history exists Chlamydia and Gonorrhea (GC/ [...] Completed 05/25/2024, , 12/27/2020, Additional history exists Procedures Procedure Name Priority Date/Time Associated Diagnosis Comments N. GONORRHOEAE/C. TRACHOMATIS AMPLIFICATION Routine 12/12/2024 9:56 AM CDT STI (sexually transmitted infection) HEPATITIS C ANTIBODY Routine 04/08/2023 10:27 AM CDT Encounter for wellness examination from Last 3 Months or Most Recently Relevant to Health Maintenance Results * N. gonorrhoeae/C. trachomatis Amplification Urine (12/12/2024 9:56 AM CDT) C. trachomatis Not Detected [facility] Comment:Testing performed by : [facility], [address] [place]., [address] N. gonorrhoeae Not Detected [facility]GEN[facility] CARLOS Comment: Interpretive Data This assay detects Chlamydia trachomatis and Neisseria gonorrhoeae by nucleic acid amplification testing (NAAT). This assay has been cleared by the [place] Food and Drug administration. The performance characteristics of this test have been verified by the [facility] Molecular Infectious Disease laboratory. The performance characteristics of this test have not been evaluated in individuals less than 14 years of age. Current Interpretive Data was last revised on 2023. Testing performed by: [facility], [address] [place]., [address] Urine (None) 12/12/2024 9:56 AM CDT 12/13/2024 10:09 AM CDT Jackie Cisneros NP LAB MICROBIOLOGY - GENER AL ORDERABLES Final Result [facility] [id number] [place] [address] Department [place] [address] [facility] * Hepatitis C antibody (04/08/2023 10:27 AM [...] last revised on 2019. Testing performed by: [facility], [address] [place] [address]., [address] Blood 04/08/2023 10:2 7 AM CDT 04/08/2023 5:08 PM CDT Bella Santiago MD LAB MICROBIOLOGY - GE NERAL ORDERABLES Final Result [facility] HOOKER ([place]) [address] Department [place] [address] from Last 3 Months or Most Recently Relevant to Health Maintenance Insurance [facility] [id number] [facility] [address] [facility] [address] [facility] [id number] [facility] Advance Directives For more information, please contact: [phone] * Full Code (Latest Code Status on File) Date Activated Date Inactivated Comments 12/11/2022 7:11 AM 12/11/2022 2:24 PM Care Teams Aix Administrator Relationship Specialty Start Date End Date Bella Santiago MD [address] [facility] [place] [address] PCP - General Family Medicine 04/06/23
[2025-03-21 12:25] VITALS: BP 111/67; PULSE 77; RESP 20; TEMP 36.8; O2SAT 100
--- OUTSIDE RECORDS SUMMARY | 2025-03-21 12:25 | XMS_ITS | Encounter Summary ---
Author [facility] Address [address] [place] [address] Phone Care Team Providers Care Parts Counterperson Name Role Phone Provider, None Primary Care Provider Unavailabl e Encounter Details Date Type Department Care Team (Late st Contact Info) Description 09/02/2023 Lab Requisition [facility] Laboratory Services [address] [place] [address] Adalgisa Glover MD [address] [place] [address] Social History Tobacco Use Types Packs/Day Years Used Date Smoking Tobacco: Never Assessed Comments Unknown Sex and Gender Information Value Date Recorded Sex Assigned at Female 09/04/2023 1:06 PM ITALIAN LECTURER Legal Sex Female 9:57 AM ITALIAN LECTURER Gender Identity Not on file Sexual Orientation Not on file documented as of this encounter Plan of Treatment Not on file documented as of this encounter Procedures Procedure Name Priority Date/Time Associated Diagnosis Comments RUBEOLA, IGG, ALVERNO, RUBE2 Routine 09/02/2023 2:07 PM ITALIAN LECTURER documented in this encounter Results * RUBEOLA, IGG, ALVERNO, RUBE2 (09/02/2023 2:07 PM ITALIAN LECTURER) RUBEOLA AB, IGG 3.8 >=1.1 AI 09/03/2023 11:55 AM ITALIAN LECTURER [facility] RUBEOLA, IGG INTRP see below 09/03/2023 11:55 AM ITALIAN LECTURER [facility] Comment: Positive for Rubeola IgG by EIA, presumed immune to Measles infection. REFERENCE RANGE </= 0.8 Negative 0.9 - 1.0 Equivocal >/= 1.1 Positive Blood No Phlebotomy Charged / Unknown 09/02/2023 2:07 PM ITALIAN LECTURER 09/02/2023 5:28 PM ITALIAN LECTURER us Ihab Christa Glover MD LAB SEND OUTS Final Result [facility] [address] [place] [address], [place] [phone] documented in this encounter Visit Diagnoses Not on filedocumented in this encounter Care Teams Parts Counterperson Relationship Specialty Start Date End Date Provider, None [place] PCP - General 09/04/23 documented as of this encounter
--- NOTE | 2025-03-21 12:30 | ED.SKABFB ---
HPI - Skin/Abscess/Foreign Bdy General Chief complaint: Skin/Abscess/Foreign Body Stated complaint: Rash Time Seen by Provider: 03/21/25 12:34 Source: patient and RN notes reviewed Mode of arrival: ambulatory Limitations: no limitations History of Present Illness HPI narrative: 20-year-old female presents with concern for itchy rash for 1 and half weeks. Reports she has tried [id number] treatments without relief. She denies any known triggers. 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 She denies any exposure to tree nuts or any new foods. She denies new the home care products herself care products. MD complaint: rash Related Data Home Medications ?Medication ?Instructions ?Recorded ?Confirmed ?Last Taken ?Type escitalopram oxalate 20 mg tablet mg 03/21/25 Unknown History zonisamide 100 mg capsule mg PO 03/21/25 Unknown History Allergies Allergy/AdvReac Type Severity Reaction Status Date / Time codeine Allergy Intermediate RASH Verified 03/21/25 12:38 pistachio nut Allergy Unknown Unknown Verified 03/21/25 12:38 walnut Allergy Unknown Unknown Verified 03/21/25 12:38 Cashew Allergy Unknown Unknown Uncoded 03/21/25 12:38 Review of Systems Review of Systems: CONSTITUTIONAL: Denies malaise, chills, sweats, or fever. EYES: Denies redness, or discharge. ENT: Denies rhinorrhea, congestion, swollen lips, swollen tongue CARDIOVASCULAR: Denies chest pain, palpitations, or edema. RESPIRATORY: Denies cough or dyspnea. GASTROINTESTINAL: Denies abdominal pain, nausea, vomiting SKIN: Reports generalized itchy rash MUSCULOSKELETAL: Denies joint pain or myalgia. NEUROLOGIC: Denies headache. All systems reviewed & are unremarkable except as noted in HPI and below PMFSH Past Medical History Medical History Allergic asthma PTSD (post-traumatic stress disorder) Epilepsy Seizure Surgical History Surgical History History of tonsillectomy and adenoidectomy Social History Social History Smoking status: Never smoker Alcohol intake: never Substance use type: does not use Living arrangements: with family Gender identity (if verbalized by the patient): Female Comments At time of signature, agree with nursing past medical, surgical, social and family history. There is no relevant family history pertinent to the presenting complaint Exam Narrative: GENERAL: Well-appearing, well-nourished, and in no acute distress. HEAD: Normocephalic, atraumatic. EYES: PERRLA, conjunctivae clear, and EOMI. ENT: Mucous membranes moist. Oropharynx without edema, erythema or lesions. NECK: Supple. No lymphadenopathy CHEST: Clear to auscultation. No respiratory distress. HEART: Regular rate and rhythm. SKIN: Warm, dry. Irregular raised erythematous patches noted on the arms and legs, cheeks NEURO: Alert and oriented x3. PSYCH: Normal mood and affect Course Course Emergency Course: Patient is aware of diagnosis, understands and agrees to treatment plan. Anticipatory guidance given. Patient agrees to follow-up as directed and is aware of reasons to seek care at the emergency department. Portions of this record may have been created with voice recognition software Level of Care: Express Care Visit Vital Signs Vital signs: Reviewed. MDM - Skin/Abscess/Foreign Bdy MDM Narrative Medical decision making narrative: Does not appear at this time to be erythema multiforme, bullous, SJS, TEN; no evidence at this time to suggest RMSF, endocarditis or Lyme disease; patient looks well, nontoxic and is tolerating oral intake; no neurologic signs or symptoms; no headache, photophobia or neck pain; afebrile; appropriate for initial outpatient treatment; discussed the importance of follow-up, patient agrees; question, viral exanthema, contact dermatitis, allergic dermatitis, eczema, urticaria. No soft palate or uvula edema, no tongue, lip edema or other mucosal involvement, no respiratory compromise, no stridor, no wheezing, no wheezing, no history of syncope, no hypotension, no nausea, vomiting, or diarrhea. Instructed patient to go to nearest ER immediately for any worsening symptoms including but not limited to: fever, spreading rash, pain, sore throat, headache, dizziness, chest pain, trouble breathing, or any symptoms concerning to the patient. Critical Care Time Critical Care Time Critical Care Time: No Discharge Plan Discharge Clinical Impression: Contact dermatitis Patient Disposition: Home Condition: Stable Instructions: Contact Dermatitis (ED) Additional Instructions: Wash the area with gentle soap and water only. Take medication as directed, Use skin cream as prescribed to reduce itchiness Avoid scratching when possible to prevent worsening of the condition and disruption of the skin that could lead to bacterial infection To relieve itching, place a cool washcloth or some ice over the area that itches, rather than scratching Follow up with primary care provider or seek ER if you have trouble breathing, become hoarse, or start wheezing, develop belly cramps, vomiting or feel dizzy. Patient Language: [place]itanian Prescriptions: New prednisone 10 mg tablet 10 mg PO DAILY Qty: 42 0RF Rx Instructions: 6 tabs days 1-2, 5 tabs days 3-4, 4 tabs days 5-6, 3 tabs days 7-8, 2 tabs days 9-10, 1 tab days 11-12 triamcinolone acetonide 0.1 % cream 1 applic TOPICAL BID 7 Days Qty: 80 0RF No Action zonisamide 100 mg capsule PO escitalopram oxalate 20 mg tablet Follow-up/Referrals: Jack,MD Bella [Primary Care Provider] - Time of Disposition: 12:40
== END 2025-03-21 12:44 | disposition home or self-care (01) ==
PROVIDERS: Emergency Provider Nurse Practitioner; PCP Family Medicine
DX: L25.9 Unspecified contact dermatitis, unspecified cause (principal); J45.909 Unspecified asthma, uncomplicated; G40.909 Epilepsy, unspecified, not intractable, without status epilepticus
CPT/HCPCS: 99213; G0463